=== PATIENT | male | born 1960 | race Hispanic/Latino ===

== ENCOUNTER 2020-11-15 08:00 | Inpatient (IN) | payer BC ==
[2020-11-10 13:40] VITALS: BP 126/81
[~2020-11-15] VITALS: Ht 175.3 cm; Wt 105.7 kg
[2020-11-15] VITALS (8 sets, daily range): BP systolic 103–147; BP diastolic 44–94
[2020-11-15] MEDS: LACTATED RINGERS 1,000 ML IV SCH ×2 (06:00→16:00)
[~2020-11-15 08:00] MED LIST: ANCEF ONE; BACTROBAN OINTMENT TP ONE; BACTROBAN TP ONE; CELEBREX ONE; CELEBREX PO ONE; DECADRON IV ONE; DEXAMETHASONE 10 MG/ML VIAL ONE; DICL50TA4 PO; LACTATED RINGERS 1,000 ML IV SCH; LISI-410 PO; MELO15TA6 PO; NEURONTIN ONE; NEURONTIN PO ONE; NS 250ML 250 ML IV ONE; TRAM50TA PO; TYLENOL PO ONE; ULTRAM ONE; ULTRAM PO STA
[2020-11-15] MEDS ORDERED: KETAMINE HCL-Non-Preferred ONE (08:12)
[2020-11-15] MEDS ORDERED: SUBLIMAZE ONE ×2 (08:13→13:03)
[2020-11-15] MEDS ORDERED: MARCAINE SPINAL AMPUL IJ ONE (08:14)
[2020-11-15] MEDS ORDERED: EPHEDRINE SULFATE ONE (08:15)
[2020-11-15] MEDS ORDERED: VERSED ONE (08:16)
[2020-11-15] MEDS ORDERED: ZOFRAN ONE (08:19)
[2020-11-15] MEDS ORDERED: DIPRIVAN IV ONE (08:19)
[2020-11-15] MEDS ORDERED: ULTRAM PO PRN ×2 (09:00)
[2020-11-15] MEDS ORDERED: LACTATED RINGERS 1,000 ML IV SCH (09:00)
[2020-11-15] MEDS ORDERED: CELEBREX PO SCH (09:00)
--- NOTE | 2020-11-15 10:07 | PCM.HP ---
History of Present Illness Reason for Visit: (1) Osteoarthritis of right hip ICD Code: M16.11 - Unilateral primary osteoarthritis, right hip SNOMED: [id number] Was this Problem Present on Ad: Yes-DX present @time ofIP Hx of Present Illness patient complains of worsening right hip pain for the past 6 months. Causing his knee to hurt. Complains of pain posteriorly and laterally. Trouble sleeping at night due to hip pain. Patient takes mobic for pain. Doesn't use any assistive devices. Lives at home with . Review of Systems Constitutional: No: Fever, Chills, Sweats, Weakness, Malaise, Other Eyes: No: Pain, Vision change, Conjunctivae inflammation, Eyelid inflammation, Other, Redness ENT: No: Ear pain, Ear discharge, Nose pain, Nose discharge, Nose congestion, Mouth pain, Mouth swelling, Throat pain, Throat swelling, Other Respiratory: No: Cough, Dry, Shortness of breath, SOB with excertion, Wheezing, Hemoptysis, Pleuritic Pain, Sputum, Wheezing, Other Cardiovascular: No: Chest Pain, Palpitations, Orthopnea, Paroxysmal Noc. Dyspnea, Edema, Lt Headedness, Other Gastrointestinal: No: Nausea, Vomiting, Abdominal Pain, Diarrhea, Constipation, Melena, Hematochezia, Other Genitourinary: No Dysuria, No Frequency, No Incontinence, No Hematuria, No Retention, No Other Musculoskeletal: other Skin: No: Rash, Lesions, Jaundice, Bruising, Other Neurological: No: Weakness, Numbness, Incoordination, Change in speech, Confusion, Seizures, Other Allergies: Coded Allergies: No Known Allergies (Unverified , 11/10/20) Scheduled Diclofenac Sodium (Diclofenac Sodium), 1 TAB PO BID, (Reported) Lisinopril (Lisinopril), 1 TAB PO DAILY, (Reported) Meloxicam (Mobic), 1 TAB PO DAILY, (Reported) Scheduled PRN Tramadol Hcl (Tramadol Hcl), 1 TAB PO BID PRN for PAIN 4 - 6, (Reported) VTE VTE Risk Total Score: >5 VTE Risk Score VTE Risk: Score 0-1 = Low Risk (Aggressive mobilization; early ambulation; no VTE prophylaxis required) Score 2: Moderate Risk (Intermittent/Pneumatic Compression Device OR Lovenox/Heparin/Coumadin) Score 3-4: High Risk (Intermittent/Pneumatic Compression Device AND Lovenox/Heparin/Coumadin) Score > or =5: Highest Risk (Intermittent/Pneumatic Compression Device AND Lovenox/Heparin/Coumadin) VTE VTE Present on Admission: No Currently receiving anticoagul: No VTE Risk Total Score: >5 Exam General Appearance: Alert, Oriented X3, Cooperative, No acute distress HEENT: Atraumatic, PERRLA, EOMI, Mucous membr. moist/pink Respiratory: Clear to auscultation, Normal air movement Cardiovascular: Regular rate Abdominal: Normal bowel sounds, Soft, No tenderness Extremities: No clubbing, No cyanosis, No edema, Normal pulses, Other (right hip pain, 90 degrees flexion, no internal rotation, 30 degrees external) Skin: No rash, No breakdown Neuro: Normal gait, Normal speech, Strength at 5/5 X4 ext Psych/Mental Status: Mental status NL, Mood NL Assessment/Plan Assessment/Plan Problems: (1) Osteoarthritis of right hip ICD Code: M16.11 - Unilateral primary osteoarthritis, right hip SNOMED: [id number] Patient History: No known health problems G8 MOTHER G8 FATHER G8 BROTHER G8 BROTHER G8 SISTER G8 SISTER Plan Right hip OA- surgery planned for today 11/15/20. WBAT RLE monitor dressing PT/OT eval and treat. WBAT RLE, walker, safety training FRANCISCA EDWARD NP Nov 15, 2020 10:07
[2020-11-15] MEDS ORDERED: NS 250ML 250 ML IV ONE (11:00)
[2020-11-15] MEDS ORDERED: NS 3000ML IRR IR ONE (11:00)
[2020-11-15] MEDS ORDERED: WATER ONE (12:43)
[2020-11-15] MEDS ORDERED: TORADOL ONE (13:03)
[2020-11-15] MEDS ORDERED: TORADOL IV PRN (15:00)
--- NOTE | 2020-11-15 15:11 | DIREP ---
PROCEDURE:XRAY HIP MIN 2VW-RT COMPARISON:None. INDICATIONS:post op FINDINGS: BONES:No acute fracture. JOINTS:Right hip arthroplasty appears intact and appropriately aligned. SOFT TISSUES:Soft tissue edema and emphysema about the right hip would be consistent with recent postoperative state, as indicated by overlying skin sigrid. CONCLUSION: 1. Postoperative changes of recent right hip arthroplasty. No suspicious abnormality. Dictated by: David Mendoza M.D. On 11/15/2020 at 03:08 PM
--- NOTE | 2020-11-15 15:55 | OPH ---
DATE OF SURGERY: 11/15/2020 PREOPERATIVE DIAGNOSIS: Osteoarthritis of the right hip. POSTOPERATIVE DIAGNOSIS: Osteoarthritis of the right hip. OPERATIVE PROCEDURE: Right total hip arthroplasty using Medacta AMIS size 3 femoral component, a size 58 Versafit cup with a 28 mm neutral ceramic head and a 58 dual-articulating liner. SURGEON: Baljit Camara MD ANESTHESIA: Spinal. BLOOD LOSS: 600 mL. DRAINS: None. DESCRIPTION OF INDICATIONS: The patient is a 60-year-old male who has had severe pain about the right hip for the last 6 months. He complains of pain with just household ambulation as well as night pain. He has tried diclofenac as well as meloxicam and Tylenol in the past. He complains of limping and difficulty with working. His x-rays show that he is circumferentially [id number] about the right hip with large osteophytes about the acetabulum and subchondral cyst. The patient was taken to the operating room today for right total hip arthroplasty for pain relief. DESCRIPTION OF PROCEDURE: The patient was given a spinal anesthetic and placed on the operating table in the supine position. The right foot and ankle were well padded and placed in the traction boot. Traction boot was then attached to the leg mendes extension. The patient had the right lower extremity sterilely prepped and draped. The patient then had an anterior incision made about the hip. The incision was taken through the skin and the subcutaneous tissues. The bleeding was controlled with cautery. The tensor fascia was opened and the tensor muscle was reflected posteriorly. The patient then had the rectus fascia opened and the rectus muscle was reflected medially. The circumflex vessels were then identified and coagulated with the Aquamantys device. The fat pad over the capsule was excised and the capsular incision was then made and the capsule was retracted posteriorly and laterally. The femoral neck cut was then made with the power saw. The head was removed from the acetabulum with a corkscrew device. The osteophytes around the peripheral edge of the acetabulum were then cleared with a rongeur and an osteotome. The patient had the fovea cleared and the bleeding controlled. The hip was then circumferentially reamed up to a size 58. The size 58 Versafit trial was placed and had good fit. The 58 Versafit cup was then impacted into the acetabulum and clinically and radiographically, the sizing of the component was good. The patient then had the posterior ligaments released. The hip was then placed in maximal external rotation and hyperextension. The canal was opened with a box chisel. Canal was then opened initially with a canal finder and then it was sequentially rasped up to a size 3. The size 3 trial had a good fit clinically as well as radiographically. We ended up using a neutral neck length and a 28 mm head. There was good stability clinically. Radiographically, the sizing of the components and the alignment was satisfactory. Trial components were then removed. A size 3 AMIS stem was then impacted into position. The 28 mm neutral neck length on the head was placed into the dual-articulating cup, which was a 58, and then it was impacted onto the Castellon taper neck. The hip was reduced. Again, clinically there was good stability and radiographically, the leg lengths appeared appropriate and the size of the components appeared appropriate. The joint was then irrigated with Betadine-containing solution for 3 minutes. The Betadine was then irrigated from the wound. The capsule was closed with a #2 PDS in an interrupted manner. The tensor fascia was closed with a #2 barbed PDS in a running manner and the subcutaneous was closed with a 2-0 barbed Monocryl in a running manner. The skin was closed with sigrid. A Prevena suction type dressing was applied. The patient was sent to recovery in stable condition. Baljit Camara MD DR: HATTIE/gonzález JOB# [id number]
[2020-11-15] MEDS: PEPCID PO SCH (16:39)
[2020-11-15] MEDS: COLACE PO SCH (16:39)
[2020-11-15] MEDS ORDERED: TYLENOL PO ONE (16:49)
[2020-11-15] MEDS: TYLENOL PO SCH (16:52)
[2020-11-15] MEDS: NEURONTIN PO SCH ×2 (16:53→21:23)
[2020-11-15] MEDS: ULTRAM PO SCH ×2 (16:54→21:23)
--- NOTE | 2020-11-15 17:41 | PRM.PN ---
Subjective Subjective Date: Nov 15, 2020 Time: 17:40 Subjective Awake and alert VSS NVM+ No N/V Pain ok Stable Patient History: No known health problems G8 MOTHER G8 FATHER G8 BROTHER G8 BROTHER G8 SISTER G8 SISTER VTE VTE Risk Total Score: >5 VTE Risk Score VTE Risk: Score 0-1 = Low Risk (Aggressive mobilization; early ambulation; no VTE prophylaxis required) Score 2: Moderate Risk (Intermittent/Pneumatic Compression Device OR Lovenox/Heparin/Coumadin) Score 3-4: High Risk (Intermittent/Pneumatic Compression Device AND Lovenox/Heparin/Coumadin) Score > or =5: Highest Risk (Intermittent/Pneumatic Compression Device AND Lovenox/Heparin/Coumadin) Review of Systems Constitutional: No: Fever, Chills, Sweats, Weakness, Malaise, Other Eyes: No: Pain, Vision change, Conjunctivae inflammation, Eyelid inflammation, Other, Redness ENT: No: Ear pain, Ear discharge, Nose pain, Nose discharge, Nose congestion, Mouth pain, Mouth swelling, Throat pain, Throat swelling, Other Respiratory: No: Cough, Dry, Shortness of breath, SOB with excertion, Wheezing, Hemoptysis, Pleuritic Pain, Sputum, Wheezing, Other Cardiovascular: No: Chest Pain, Palpitations, Orthopnea, Paroxysmal Noc. Dyspnea, Edema, Lt Headedness, Other Gastrointestinal: No: Nausea, Vomiting, Abdominal Pain, Diarrhea, Constipation, Melena, Hematochezia, Other Genitourinary: No Dysuria, No Frequency, No Incontinence, No Hematuria, No Retention, No Other Musculoskeletal: other Skin: No: Rash, Lesions, Jaundice, Bruising, Other Neurological: No: Weakness, Numbness, Incoordination, Change in speech, Confusion, Seizures, Other Allergies: Coded Allergies: No Known Allergies (Unverified , 11/10/20) Scheduled Diclofenac Sodium (Diclofenac Sodium), 1 TAB PO BID, (Reported) Lisinopril (Lisinopril), 1 TAB PO DAILY, (Reported) Meloxicam (Mobic), 1 TAB PO DAILY, (Reported) Scheduled PRN Tramadol Hcl (Tramadol Hcl), 1 TAB PO BID PRN for PAIN 4 - 6, (Reported) Objective Vitals and I/O Vital Sign - Last 24 Hours 1/25/21 11/15/20 11/15/20 11/15/20 06:00 06:00 14:31 14:31 Temp 96.9 98.7 Pulse 75 94 Resp 18 18 B/P (MAP) 140/78 (98) 122/44 (70) Pulse Ox 96 97 O2 Delivery Room Air Room Air Non-Rebreather O2 Flow Rate 5 5 11/15/20 11/15/20 11/15/20 11/15/20 14:41 14:51 15:01 15:11 Pulse 90 95 90 88 Resp 18 18 16 18 B/P (MAP) 130/57 (81) 141/94 (110) 146/88 (107) 147/88 (107) Pulse Ox 97 98 100 100 O2 Delivery Room Air Room Air Room Air Room Air 11/15/20 11/15/20 15:21 16:10 Pulse 91 Resp 18 B/P (MAP) 141/75 (97) Pulse Ox 99 O2 Delivery Room Air Room Air O2 Flow Rate 0.00 General: Alert, Oriented X3, Cooperative, No acute distress HEENT: Atraumatic, PERRLA, EOMI, Mucous membr. moist/pink Lungs: Clear to auscultation, Normal air movement Heart: Regular rate Abdomen: Normal bowel sounds, Soft, No tenderness Extremities: No clubbing, No cyanosis, No edema, Normal pulses, Other (right hip pain, 90 degrees flexion, no internal rotation, 30 degrees external) Neuro: Normal gait, Normal speech, Strength at 5/5 X4 ext Psych/Mental Status: Mental status NL, Mood NL All Results(Lab/Rad) Current Medications Medications (Trade) Dose Ordered Sig/Lopez Route PRN Reason Start Time Stop Time Status Last Admin Dose Admin Mupirocin (Bactroban) 1 gm OT ONCE TP 11/15/20 06:00 11/15/20 16:37 DC Sodium Chloride 250 ml @ ud STK-MED ONCE IV 11/13/20 17:25 11/13/20 17:26 DC Cefazolin Sodium (Ancef) 1 gm STK-MED ONCE .ROUTE 11/13/20 17:25 11/13/20 17:26 DC Mupirocin (Bactroban Ointment) 1 gm STK-MED ONCE TP 11/13/20 17:25 11/13/20 17:26 DC Mupirocin (Bactroban Ointment) 1 gm OT ONCE TP 11/15/20 07:00 11/15/20 16:36 DC 11/15/20 06:38 Celecoxib (Celebrex) 100 mg STK-MED ONCE .ROUTE 11/15/20 07:39 11/15/20 07:39 DC Acetaminophen (Tylenol) 500 mg STK-MED ONCE PO 11/15/20 07:39 11/15/20 07:39 DC Gabapentin (Neurontin) 300 mg STK-MED ONCE .ROUTE 11/15/20 07:39 11/15/20 07:39 DC Tramadol HCl (Ultram) 50 mg STK-MED ONCE .ROUTE 11/15/20 07:39 11/15/20 07:40 DC Celecoxib (Celebrex) 400 mg OT ONCE PO 11/15/20 06:00 11/15/20 16:38 DC 11/15/20 07:44 Tramadol HCl (Ultram) 100 mg OT STAT PO 11/15/20 06:00 11/15/20 16:41 DC 11/15/20 07:45 Acetaminophen (Tylenol) 1,000 mg OT ONCE PO 11/15/20 08:00 11/15/20 16:42 DC 11/15/20 07:45 Gabapentin (Neurontin) 600 mg OT ONCE PO 11/15/20 06:00 11/15/20 16:40 DC 11/15/20 07:44 Ketamine HCl (KETAMINE [id number]) 500 mg STK-MED ONCE .ROUTE 11/15/20 08:12 11/15/20 08:12 DC Fentanyl Citrate (Sublimaze) 50 mcg STK-MED ONCE .ROUTE 11/15/20 08:13 11/15/20 08:13 DC Bupivacaine HCl/ Dextrose (Marcaine Spinal Ampul) 2 ml STK-MED ONCE IJ 11/15/20 08:14 11/15/20 08:14 DC Ephedrine Sulfate (Ephedrine Sulfate) 50 mg STK-MED ONCE .ROUTE 11/15/20 08:15 11/15/20 08:15 DC Propofol (Diprivan) 200 mg STK-MED ONCE IV 11/15/20 08:19 11/15/20 08:19 DC Ondansetron HCl (Zofran) 4 mg STK-MED ONCE .ROUTE 11/15/20 08:19 11/15/20 08:20 DC Tramadol HCl (Ultram) 50 mg Q6H PRN PO PAIN 4 - 6 11/15/20 09:00 11/15/20 14:44 DC Tramadol HCl (Ultram) 100 mg Q6H PRN PO PAIN 7 - 10 11/15/20 09:00 12/15/20 08:59 Rivaroxaban (Xarelto) 10 mg DAILY PO 11/16/20 09:00 12/16/20 08:59 Docusate Sodium (Colace) 100 mg DAILY PO 11/15/20 09:00 12/15/20 08:59 Famotidine (Pepcid) 20 mg DAILY PO 11/15/20 09:00 12/15/20 08:59 Celecoxib (Celebrex) 200 mg BID PO 11/15/20 09:00 11/15/20 14:44 DC Diclofenac Sodium (Voltaren) 50 mg BID PO 11/15/20 21:00 11/15/20 14:44 DC Lisinopril (Zestril) 20 mg DAILY PO 11/16/20 09:00 12/16/20 08:59 Sodium Chloride 250 ml @ ud STK-MED ONCE IV 11/15/20 11:00 11/15/20 11:00 DC Sodium Chloride (NS 3000ml Irr) 3,000 ml STK-MED ONCE IR 11/15/20 11:00 11/15/20 11:00 DC Sterile Water (Water) 1,000 ml STK-MED ONCE .ROUTE 11/15/20 12:43 11/15/20 12:44 DC Fentanyl Citrate (Sublimaze) 50 mcg STK-MED ONCE .ROUTE 11/15/20 13:03 11/15/20 13:03 DC Ketorolac Tromethamine (Toradol) 30 mg STK-MED ONCE .ROUTE 11/15/20 13:03 11/15/20 13:04 DC Tramadol HCl (Ultram) 50 mg Q4HR PO 11/15/20 15:00 12/15/20 08:59 11/15/20 16:54 Acetaminophen (Tylenol) 1,000 mg Q6HR PO 11/15/20 18:00 12/15/20 17:59 11/15/20 16:52 Gabapentin (Neurontin) 100 mg TID PO 11/15/20 15:00 12/15/20 14:59 11/15/20 16:53 Ketorolac Tromethamine (Toradol) 30 mg Q6H PRN IV PAIN 7 - 10 11/15/20 15:00 11/20/20 14:59 Gabapentin (Neurontin) 600 mg OT ONCE PO 11/15/20 06:00 11/15/20 16:40 DC Acetaminophen (Tylenol) 500 mg STK-MED ONCE PO 11/15/20 16:49 11/15/20 16:50 DC Course Vitals & review Data Vital Sign - Last 24 Hours 11/15/20 11/15/20 11/15/20 11/15/20 06:00 06:00 14:31 14:31 Temp 96.9 98.7 Pulse 75 94 Resp 18 18 B/P (MAP) 140/78 (98) 122/44 (70) Pulse Ox 96 97 O2 Delivery Room Air Room Air Non-Rebreather O2 Flow Rate 5 5 11/15/20 11/15/20 11/15/20 11/15/20 14:41 14:51 15:01 15:11 Pulse 90 95 90 88 Resp 18 18 16 18 B/P (MAP) 130/57 (81) 141/94 (110) 146/88 (107) 147/88 (107) Pulse Ox 97 98 100 100 O2 Delivery Room Air Room Air Room Air Room Air 11/15/20 11/15/20 15:21 16:10 Pulse 91 Resp 18 B/P (MAP) 141/75 (97) Pulse Ox 99 O2 Delivery Room Air Room Air O2 Flow Rate 0.00 Current Medications Medications (Trade) Dose Ordered Sig/Lopez PRN Reason Start Time Stop Time Status Last Admin Acetaminophen (Tylenol) 1,000 mg Q6HR 11/15/20 18:00 12/15/20 17:59 11/15/20 16:52 Docusate Sodium (Colace) 100 mg DAILY 11/15/20 09:00 12/15/20 08:59 Famotidine (Pepcid) 20 mg DAILY 11/15/20 09:00 12/15/20 08:59 Gabapentin (Neurontin) 100 mg TID 11/15/20 15:00 12/15/20 14:59 11/15/20 16:53 Ketorolac Tromethamine (Toradol) 30 mg Q6H PRN PAIN 7 - 10 11/15/20 15:00 11/20/20 14:59 Lisinopril (Zestril) 20 mg DAILY 11/16/20 09:00 12/16/20 08:59 Rivaroxaban (Xarelto) 10 mg DAILY 11/16/20 09:00 12/16/20 08:59 Tramadol HCl (Ultram) 50 mg Q4HR 11/15/20 15:00 12/15/20 08:59 11/15/20 16:54 Tramadol HCl (Ultram) 100 mg Q6H PRN PAIN 7 - 10 11/15/20 09:00 12/15/20 08:59 O2 Sat by Pulse Oximetry: 99 Oxygen Flow Rate: 0.00 Assessment/Plan Assessment/Plan Assessment/Plan Right hip OA- surgery planned for today 11/15/20. WBAT RLE monitor dressing PT/OT eval and treat. WBAT stan VERDE, safety training Plan Right hip OA- surgery planned for today 11/15/20. WBAT RLE monitor dressing PT/OT eval and treat. WBAT stan VERDE, safety training KAYLENE NEAL MD Nov 15, 2020 17:41
--- NOTE | 2020-11-15 18:46 | NUR ---
1550 Received 60 year old male admitted to room 338, s/p right hip surgery. Prevea in place. Pashto speaking. Alert Ox3. No acute or resp distress noted. Skin warm and dry. LBM 11/14/2020. Pedal pulses x 2 present. Negative homans Peoples catheter in place. Oriented to call light system.
[2020-11-15] MEDS ORDERED: VOLTAREN PO SCH (21:00)
[2020-11-16] MEDS: TYLENOL PO SCH ×4 (00:22→17:35)
[2020-11-16] MEDS: ULTRAM PO SCH ×7 (00:23→20:10)
[2020-11-16 00:46] VITALS: BP 99/54
[2020-11-16] MEDS: LACTATED RINGERS 1,000 ML IV SCH ×3 (01:47→22:00)
[2020-11-16 04:47] VITALS: BP 100/53
[2020-11-16 05:30] LABS: MEAN CORP HGB 30.5 pg (26-34); RED CELL DISTRIBUTION WIDTH 12.9 % (11.5-14.5)
[2020-11-16 07:58] VITALS: BP 99/53
[2020-11-16] MEDS: NEURONTIN PO SCH ×3 (08:40→20:10)
[2020-11-16] MEDS: COLACE PO SCH (08:40)
[2020-11-16] MEDS: XARELTO PO SCH (08:41)
[2020-11-16] MEDS: ZESTRIL PO SCH (08:41)
[2020-11-16] MEDS: PEPCID PO SCH (08:41)
--- NOTE | 2020-11-16 09:08 | NUR ---
Post Anesthesia Rounding: Pt sitting up in bed, pt denies pain or PONV. Bilateral lower extremity motor function intact, pt denies back pain or headache. Pt encouraged to use incentive spirometry to maximize lung expansion / basilar. Pt verbalizes understanding Thank you, Dr. Dio Way, DNP, [employer]
[2020-11-16] MEDS: ANCEF 3 GM in NS 100ML 100 ML IV SCH ×2 (09:12→15:41)
--- NOTE | 2020-11-16 09:14 | PRM.PN ---
Subjective Subjective Date: Nov 16, 2020 Time: 09:07 Subjective patient laying in bed, pain controlled had content strategy lead for patient VS /, patient denies dizziness or nausea. Appetite good. labs reviewed; . right hip dressing C/D/I PT in room to work on ambulation and transfers for the first time since surgery Patient History: No known health problems G8 MOTHER G8 FATHER G8 BROTHER G8 BROTHER G8 SISTER G8 SISTER VTE VTE Risk Total Score: >5 VTE Risk Score VTE Risk: Score 0-1 = Low Risk (Aggressive mobilization; early ambulation; no VTE prophylaxis required) Score 2: Moderate Risk (Intermittent/Pneumatic Compression Device OR Lovenox/Heparin/Coumadin) Score 3-4: High Risk (Intermittent/Pneumatic Compression Device AND Lovenox/Heparin/Coumadin) Score > or =5: Highest Risk (Intermittent/Pneumatic Compression Device AND Lovenox/Heparin/Coumadin) Review of Systems Constitutional: No: Fever, Chills, Sweats, Weakness, Malaise, Other Eyes: No: Pain, Vision change, Conjunctivae inflammation, Eyelid inflammation, Other, Redness ENT: No: Ear pain, Ear discharge, Nose pain, Nose discharge, Nose congestion, Mouth pain, Mouth swelling, Throat pain, Throat swelling, Other Respiratory: No: Cough, Dry, Shortness of breath, SOB with excertion, Wheezing, Hemoptysis, Pleuritic Pain, Sputum, Wheezing, Other Cardiovascular: No: Chest Pain, Palpitations, Orthopnea, Paroxysmal Noc. Dyspnea, Edema, Lt Headedness, Other Gastrointestinal: No: Nausea, Vomiting, Abdominal Pain, Diarrhea, Constipation, Melena, Hematochezia, Other Genitourinary: No Dysuria, No Frequency, No Incontinence, No Hematuria, No Retention, No Other Musculoskeletal: other (right hip) Skin: No: Rash, Lesions, Jaundice, Bruising, Other Neurological: No: Weakness, Numbness, Incoordination, Change in speech, Confusion, Seizures, Other Allergies: Coded Allergies: No Known Allergies (Unverified , 11/10/20) Scheduled Diclofenac Sodium (Diclofenac Sodium), 1 TAB PO BID, (Reported) Lisinopril (Lisinopril), 1 TAB PO DAILY, (Reported) Meloxicam (Mobic), 1 TAB PO DAILY, (Reported) Scheduled PRN Tramadol Hcl (Tramadol Hcl), 1 TAB PO BID PRN for PAIN 4 - 6, (Reported) Objective Vitals and I/O Vital Sign - Last 24 Hours 11/15/20 11/15/20 11/15/20 11/15/20 14:31 14:31 14:41 14:51 Temp 98.7 Pulse 94 90 95 Resp 18 18 18 B/P (MAP) 122/44 (70) 130/57 (81) 141/94 (110) Pulse Ox 97 97 98 O2 Delivery Non-Rebreather Room Air Room Air O2 Flow Rate 5 5 11/15/20 11/15/20 11/15/20 11/15/20 15:01 15:11 15:21 16:10 Pulse 90 88 91 Resp 16 18 18 B/P (MAP) 146/88 (107) 147/88 (107) 141/75 (97) Pulse Ox 100 100 99 O2 Delivery Room Air Room Air Room Air Room Air O2 Flow Rate 0.00 11/15/20 11/15/20 11/16/20 11/16/20 19:46 23:38 00:46 04:47 Temp 98.2 98.1 97.9 Pulse 87 81 77 Resp 18 18 18 B/P (MAP) 103/63 (76) 99/54 (69) 100/53 (69) Pulse Ox 98 98 100 O2 Delivery Room Air Room Air Room Air Room Air 11/16/20 11/16/20 07:58 08:41 Temp 98.5 Pulse 73 B/P (MAP) 99/53 (68) 99/53 Pulse Ox 100 Intake and Output 11/16/20 07:00 Intake Total 8090 ml Output Total 1400 ml Balance 6690 ml General: Alert, Oriented X3, Cooperative, No acute distress HEENT: Atraumatic, PERRLA, EOMI, Mucous membr. moist/pink Lungs: Clear to auscultation, Normal air movement Heart: Regular rate Abdomen: Normal bowel sounds, Soft, No tenderness Extremities: No clubbing, No cyanosis, No edema, Normal pulses, Other (right hip prevenia dressing intact, dressing clean and dry. Neuros intact.) Neuro: Normal gait, Normal speech, Strength at 5/5 X4 ext Psych/Mental Status: Mental status NL, Mood NL All Results(Lab/Rad) Current Medications Medications (Trade) Dose Ordered Sig/Lopez Route PRN Reason Start Time Stop Time Status Last Admin Dose Admin Mupirocin (Bactroban) 1 gm OT ONCE TP 11/15/20 06:00 11/15/20 16:37 DC Sodium Chloride 250 ml @ ud STK-MED ONCE IV 11/13/20 17:25 11/13/20 17:26 DC Cefazolin Sodium (Ancef) 1 gm STK-MED ONCE .ROUTE 11/13/20 17:25 11/13/20 17:26 DC Mupirocin (Bactroban Ointment) 1 gm STK-MED ONCE TP 11/13/20 17:25 11/13/20 17:26 DC Mupirocin (Bactroban Ointment) 1 gm OT ONCE TP 11/15/20 07:00 11/15/20 16:36 DC 11/15/20 06:38 Celecoxib (Celebrex) 100 mg STK-MED ONCE .ROUTE 11/15/20 07:39 11/15/20 07:39 DC Acetaminophen (Tylenol) 500 mg STK-MED ONCE PO 11/15/20 07:39 11/15/20 07:39 DC Gabapentin (Neurontin) 300 mg STK-MED ONCE .ROUTE 11/15/20 07:39 11/15/20 07:39 DC Tramadol HCl (Ultram) 50 mg STK-MED ONCE .ROUTE 11/15/20 07:39 11/15/20 07:40 DC Celecoxib (Celebrex) 400 mg OT ONCE PO 11/15/20 06:00 11/15/20 16:38 DC 11/15/20 07:44 Tramadol HCl (Ultram) 100 mg OT STAT PO 11/15/20 06:00 11/15/20 16:41 DC 11/15/20 07:45 Acetaminophen (Tylenol) 1,000 mg OT ONCE PO 11/15/20 08:00 11/15/20 16:42 DC 11/15/20 07:45 Gabapentin (Neurontin) 600 mg OT ONCE PO 11/15/20 06:00 11/15/20 16:40 DC 11/15/20 07:44 Ketamine HCl (KETAMINE [id number]-[id number]) 500 mg STK-MED ONCE .ROUTE 11/15/20 08:12 11/15/20 08:12 DC Fentanyl Citrate (Sublimaze) 50 mcg STK-MED ONCE .ROUTE 11/15/20 08:13 11/15/20 08:13 DC Bupivacaine HCl/ Dextrose (Marcaine Spinal Ampul) 2 ml STK-MED ONCE IJ 11/15/20 08:14 11/15/20 08:14 DC Ephedrine Sulfate (Ephedrine Sulfate) 50 mg STK-MED ONCE .ROUTE 11/15/20 08:15 11/15/20 08:15 DC Propofol (Diprivan) 200 mg STK-MED ONCE IV 11/15/20 08:19 11/15/20 08:19 DC Ondansetron HCl (Zofran) 4 mg STK-MED ONCE .ROUTE 11/15/20 08:19 11/15/20 08:20 DC Tramadol HCl (Ultram) 50 mg Q6H PRN PO PAIN 4 - 6 11/15/20 09:00 11/15/20 14:44 DC Tramadol HCl (Ultram) 100 mg Q6H PRN PO PAIN 7 - 10 11/15/20 09:00 12/15/20 08:59 Rivaroxaban (Xarelto) 10 mg DAILY PO 11/16/20 09:00 12/16/20 08:59 Docusate Sodium (Colace) 100 mg DAILY PO 11/15/20 09:00 12/15/20 08:59 Famotidine (Pepcid) 20 mg DAILY PO 11/15/20 09:00 12/15/20 08:59 Celecoxib (Celebrex) 200 mg BID PO 11/15/20 09:00 11/15/20 14:44 DC Diclofenac Sodium (Voltaren) 50 mg BID PO 11/15/20 21:00 11/15/20 14:44 DC Lisinopril (Zestril) 20 mg DAILY PO 11/16/20 09:00 12/16/20 08:59 Sodium Chloride 250 ml @ ud STK-MED ONCE IV 11/15/20 11:00 11/15/20 11:00 DC Sodium Chloride (NS 3000ml Irr) 3,000 ml STK-MED ONCE IR 11/15/20 11:00 11/15/20 11:00 DC Sterile Water (Water) 1,000 ml STK-MED ONCE .ROUTE 11/15/20 12:43 11/15/20 12:44 DC Fentanyl Citrate (Sublimaze) 50 mcg STK-MED ONCE .ROUTE 11/15/20 13:03 11/15/20 13:03 DC Ketorolac Tromethamine (Toradol) 30 mg STK-MED ONCE .ROUTE 11/15/20 13:03 11/15/20 13:04 DC Tramadol HCl (Ultram) 50 mg Q4HR PO 11/15/20 15:00 12/15/20 08:59 11/15/20 16:54 Acetaminophen (Tylenol) 1,000 mg Q6HR PO 11/15/20 18:00 12/15/20 17:59 11/15/20 16:52 Gabapentin (Neurontin) 100 mg TID PO 11/15/20 15:00 12/15/20 14:59 11/15/20 16:53 Ketorolac Tromethamine (Toradol) 30 mg Q6H PRN IV PAIN 7 - 10 11/15/20 15:00 11/20/20 14:59 Gabapentin (Neurontin) 600 mg OT ONCE PO 11/15/20 06:00 11/15/20 16:40 DC Acetaminophen (Tylenol) 500 mg STK-MED ONCE PO 11/15/20 16:49 11/15/20 16:50 DC Course Sepsis Screening Results: Posi: NEGATIVE Sepsis Qualifier/Stage: NO DEFINITE RISK Vitals & review Data Vital Sign - Last 24 Hours 11/15/20 11/15/20 11/15/20 11/15/20 06:00 06:00 14:31 14:31 Temp 96.9 98.7 Pulse 75 94 Resp 18 18 B/P (MAP) 140/78 (98) 122/44 (70) Pulse Ox 96 97 O2 Delivery Room Air Room Air Non-Rebreather O2 Flow Rate 5 5 11/15/20 11/15/20 11/15/20 11/15/20 14:41 14:51 15:01 15:11 Pulse 90 95 90 88 Resp 18 18 16 18 B/P (MAP) 130/57 (81) 141/94 (110) 146/88 (107) 147/88 (107) Pulse Ox 97 98 100 100 O2 Delivery Room Air Room Air Room Air Room Air 11/15/20 11/15/20 15:21 16:10 Pulse 91 Resp 18 B/P (MAP) 141/75 (97) Pulse Ox 99 O2 Delivery Room Air Room Air O2 Flow Rate 0.00 Current Medications Medications (Trade) Dose Ordered Sig/Lopez PRN Reason Start Time Stop Time Status Last Admin Acetaminophen (Tylenol) 1,000 mg Q6HR 11/15/20 18:00 12/15/20 17:59 11/15/20 16:52 Docusate Sodium (Colace) 100 mg DAILY 11/15/20 09:00 12/15/20 08:59 Famotidine (Pepcid) 20 mg DAILY 11/15/20 09:00 12/15/20 08:59 Gabapentin (Neurontin) 100 mg TID 11/15/20 15:00 12/15/20 14:59 11/15/20 16:53 Ketorolac Tromethamine (Toradol) 30 mg Q6H PRN PAIN 7 - 10 11/15/20 15:00 11/20/20 14:59 Lisinopril (Zestril) 20 mg DAILY 11/16/20 09:00 12/16/20 08:59 Rivaroxaban (Xarelto) 10 mg DAILY 11/16/20 09:00 12/16/20 08:59 Tramadol HCl (Ultram) 50 mg Q4HR 11/15/20 15:00 12/15/20 08:59 11/15/20 16:54 Tramadol HCl (Ultram) 100 mg Q6H PRN PAIN 7 - 10 11/15/20 09:00 12/15/20 08:59 LEVEL 1 SEPSIS INFECTION CRITE: Recent Invasive Procedure LEVEL 2-SIRS (LIST ALL THAT AP: None/Not assessed Hematologic Evidence: None/Not assessed Hepatic Evidence: None/Not assessed Neurological Evidence: None/Not assessed Renal Evidence: None/Not assessed O2 Sat by Pulse Oximetry: 100 Oxygen Flow Rate: 0.00 Assessment/Plan Assessment/Plan Problems: (1) Osteoarthritis of right hip Status: Acute ICD Code: M16.11 - Unilateral primary osteoarthritis, right hip SNOMED: 736579151342879 Plan Right hip OA- s/p Right CASS WBAT RLE monitor dressing PT/OT eval and treat. WBAT RLE, walker, safety training monitor BP, keep IVF running. Hold Lisinopril DVT prophylaxis- Xarelto started this morning. monitor CBC labs scheduled for morning remove newby catheter today FRANCISCA EDWARD NP Nov 16, 2020 09:14
[2020-11-16 12:28] VITALS: BP 108/58
[2020-11-16 17:33] VITALS: BP 95/52
[2020-11-16 19:46] VITALS: BP 106/52
[2020-11-17] MEDS: ULTRAM PO SCH ×4 (00:25→11:23)
[2020-11-17] MEDS: TYLENOL PO SCH ×3 (00:25→11:24)
[2020-11-17 00:26] VITALS: BP 105/59
[2020-11-17 04:53] VITALS: BP 114/67
[2020-11-17 05:16] LABS: MEAN CORP HGB 30.7 pg (26-34); RED CELL DISTRIBUTION WIDTH 13.2 % (11.5-14.5)
[2020-11-17 05:59] LABS: CALCIUM 8.6 mg/dL (8.4-10.5); CARBON DIOXIDE 28.2 mmol/L (20.0-32)
[2020-11-17] MEDS: COLACE PO SCH (08:16)
[2020-11-17 08:17] VITALS: BP 103/66
[2020-11-17] MEDS: ZESTRIL PO SCH (08:17)
[2020-11-17] MEDS: XARELTO PO SCH (08:17)
[2020-11-17] MEDS: PEPCID PO SCH (08:17)
[2020-11-17] MEDS: NEURONTIN PO SCH (08:17)
[2020-11-17] MEDS: LACTATED RINGERS 1,000 ML IV SCH (08:18)
--- NOTE | 2020-11-17 08:31 | PRM.DC ---
Discharge Summary Date of Discharge: Nov 17, 2020 Time of Request to Discharge: 08:26 Additional Comments patient sitting in bed, finished breakfast pain controlled right hip dressing intact ambulating well with PT VSS ready to discharge Patient History: No known health problems G8 MOTHER G8 FATHER G8 BROTHER G8 BROTHER G8 SISTER G8 SISTER General: Alert, Oriented X3, Cooperative, No acute distress HEENT: Atraumatic, PERRLA, EOMI, Mucous membr. moist/pink Neck: Supple, No JVD, No thyromegaly Lungs: Clear to auscultation, Normal air movement Heart: Regular rate Abdomen: Normal bowel sounds, Soft, No tenderness, No hepatospenomegaly Extremities: No clubbing, No cyanosis, No edema, Normal pulses, No tenderness/swelling Skin: No rashes, No breakdown, No significant lesion Neuro: Normal gait, Normal speech Psych/Mental Status: Mental status NL, Mood NL Scheduled Diclofenac Sodium (Diclofenac Sodium), 1 TAB PO BID, (Reported) Lisinopril (Lisinopril), 1 TAB PO DAILY, (Reported) Meloxicam (Mobic), 1 TAB PO DAILY, (Reported) Scheduled PRN Tramadol Hcl (Tramadol Hcl), 1 TAB PO BID PRN for PAIN 4 - 6, (Reported) Sepsis Evaluation @ Discharge Vital Sign - Last 24 Hours 11/15/20 11/15/20 11/15/20 11/15/20 06:00 06:00 14:31 14:31 Temp 96.9 98.7 Pulse 75 94 Resp 18 18 B/P (MAP) 140/78 (98) 122/44 (70) Pulse Ox 96 97 O2 Delivery Room Air Room Air Non-Rebreather O2 Flow Rate 5 5 11/15/20 11/15/20 11/15/20 11/15/20 14:41 14:51 15:01 15:11 Pulse 90 95 90 88 Resp 18 18 16 18 B/P (MAP) 130/57 (81) 141/94 (110) 146/88 (107) 147/88 (107) Pulse Ox 97 98 100 100 O2 Delivery Room Air Room Air Room Air Room Air 11/15/20 11/15/20 15:21 16:10 Pulse 91 Resp 18 B/P (MAP) 141/75 (97) Pulse Ox 99 O2 Delivery Room Air Room Air O2 Flow Rate 0.00 Current Medications Medications (Trade) Dose Ordered Sig/Lopez PRN Reason Start Time Stop Time Status Last Admin Acetaminophen (Tylenol) 1,000 mg Q6HR 11/15/20 18:00 12/15/20 17:59 11/15/20 16:52 Docusate Sodium (Colace) 100 mg DAILY 11/15/20 09:00 12/15/20 08:59 Famotidine (Pepcid) 20 mg DAILY 11/15/20 09:00 12/15/20 08:59 Gabapentin (Neurontin) 100 mg TID 11/15/20 15:00 12/15/20 14:59 11/15/20 16:53 Ketorolac Tromethamine (Toradol) 30 mg Q6H PRN PAIN 7 - 10 11/15/20 15:00 11/20/20 14:59 Lisinopril (Zestril) 20 mg DAILY 11/16/20 09:00 12/16/20 08:59 Rivaroxaban (Xarelto) 10 mg DAILY 11/16/20 09:00 12/16/20 08:59 Tramadol HCl (Ultram) 50 mg Q4HR 11/15/20 15:00 12/15/20 08:59 11/15/20 16:54 Tramadol HCl (Ultram) 100 mg Q6H PRN PAIN 7 - 10 11/15/20 09:00 12/15/20 08:59 Course Sepsis Screening Results: Posi: NEGATIVE Sepsis Qualifier/Stage: NO DEFINITE RISK Vitals & review Data Vital Sign - Last 24 Hours 11/15/20 11/15/20 11/15/20 11/15/20 06:00 06:00 14:31 14:31 Temp 96.9 98.7 Pulse 75 94 Resp 18 18 B/P (MAP) 140/78 (98) 122/44 (70) Pulse Ox 96 97 O2 Delivery Room Air Room Air Non-Rebreather O2 Flow Rate 5 5 11/15/20 11/15/20 11/15/20 11/15/20 14:41 14:51 15:01 15:11 Pulse 90 95 90 88 Resp 18 18 16 18 B/P (MAP) 130/57 (81) 141/94 (110) 146/88 (107) 147/88 (107) Pulse Ox 97 98 100 100 O2 Delivery Room Air Room Air Room Air Room Air 11/15/20 11/15/20 15:21 16:10 Pulse 91 Resp 18 B/P (MAP) 141/75 (97) Pulse Ox 99 O2 Delivery Room Air Room Air O2 Flow Rate 0.00 Current Medications Medications (Trade) Dose Ordered Sig/Lopez PRN Reason Start Time Stop Time Status Last Admin Acetaminophen (Tylenol) 1,000 mg Q6HR 11/15/20 18:00 12/15/20 17:59 11/15/20 16:52 Docusate Sodium (Colace) 100 mg DAILY 11/15/20 09:00 12/15/20 08:59 Famotidine (Pepcid) 20 mg DAILY 11/15/20 09:00 12/15/20 08:59 Gabapentin (Neurontin) 100 mg TID 11/15/20 15:00 12/15/20 14:59 11/15/20 16:53 Ketorolac Tromethamine (Toradol) 30 mg Q6H PRN PAIN 7 - 10 11/15/20 15:00 11/20/20 14:59 Lisinopril (Zestril) 20 mg DAILY 11/16/20 09:00 12/16/20 08:59 Rivaroxaban (Xarelto) 10 mg DAILY 11/16/20 09:00 12/16/20 08:59 Tramadol HCl (Ultram) 50 mg Q4HR 11/15/20 15:00 12/15/20 08:59 11/15/20 16:54 Tramadol HCl (Ultram) 100 mg Q6H PRN PAIN 7 - 10 11/15/20 09:00 12/15/20 08:59 LEVEL 1 SEPSIS INFECTION CRITE: Recent Invasive Procedure LEVEL 2-SIRS (LIST ALL THAT AP: None/Not assessed Cardiovascular Evidence: Not Assessed or None Hematologic Evidence: None/Not assessed Hepatic Evidence: None/Not assessed Metabolic Evidence: None/Not assessed Neurological Evidence: None/Not assessed Respiratory Evidence: None/Not assessed Renal Evidence: None/Not assessed O2 Sat by Pulse Oximetry: 97 Oxygen Flow Rate: 0.00 Plan Problems: (1) Osteoarthritis of right hip Status: Acute ICD Code: M16.11 - Unilateral primary osteoarthritis, right hip SNOMED: 796758664005406 Discharge Date: Nov 17, 2020 Discharge Disposition: Stable Plan Right hip OA- POD #2 of right total hip arthroplasty monitor dressing, keep intact. F/U at Dr Palomino office on Sunday11/22/20 continue exercises for home, WBAT RLE labs reviewed stable DVT prophylaxis- Xarelto 10 mg daily x 7 days FRANCISCA EDWARD NP Nov 17, 2020 08:31
[2020-11-17] MEDS ORDERED: RIVA10TA PO (08:39)
[2020-11-17] MEDS ORDERED: TRAM50TA PO (08:39)
[2020-11-17 12:06] VITALS: BP 102/51
[2020-11-17 13:47] VITALS: BP 102/51
== END 2020-11-17 13:00 | disposition home or self-care (01) | DRG 470 ==
LOC: MS 16:00
PROVIDERS: ADMIT Orthopaedic Surgery; ATTEND Orthopaedic Surgery
PROC: 3E0T3BZ Introduction of Anesthetic Agent into Peripheral Nerves and Plexi, Percutaneous Approach (ICD-10-PCS; 2020-11-15)
PROC: 3E0T33Z Introduction of Anti-inflammatory into Peripheral Nerves and Plexi, Percutaneous Approach (ICD-10-PCS; 2020-11-15)
PROC: 0SR903Z Replacement of Right Hip Joint with Ceramic Synthetic Substitute, Open Approach (ICD-10-PCS; principal; 2020-11-15 11:05)
DX: M16.11 Unilateral primary osteoarthritis, right hip (principal); Z79.899 Other long term (current) drug therapy
CPT/HCPCS: 36415; 73502; 76000; 80053; 85027; 87070; 97162; 97165; A4217; A6550; G0378; J0690; J1100; J1885; J2250; J2405; J3010; J3490; J7050; J7120; 97116-GP; C1776; J8499

== ENCOUNTER 2022-06-12 08:00 | Inpatient (IN) | payer BC ==
[2022-05-31 14:27] VITALS: BP 147/93
--- NOTE | 2022-05-31 14:37 | PCM.EKG ---
[facility] Test Date: 2022-05-31 Test Time: 14:35:07 Pat Name: RAMIN CANNON Department: Room: Gender: M Yoghurt Maker: LELIA : 1960 Requested By: KAYLENE NEAL Order Number: [id number] Reading MD: Measurements Intervals [place] Rate: 64 P: 71 ID: [id number] QRS: 57 QRSD: 92 T: 60 QT: 430 QTc: 443 Interpretive Statements Normal sinus rhythm No previous ECG available for comparison Please click the below link to view image of tracing.
[2022-05-31 14:55] LABS: BASOPHIL # 0.1 10^3/uL (0.0-0.1); BASOPHIL % 0.8 % (0.0-0.2); EOSINOPHIL # 0.1 10^3/uL (0.0-0.2); EOSINOPHIL % 2.3 % (0.0-5.0); LYMPHOCYTES # 1.58 10^3/uL1 (1.0-4.8); MEAN CORP HGB 30.1 pg (26-34); MONOCYTES # 0.7 10^3/uL (0.3-0.8); MONOCYTES % 10.7 % (5.0-12.0); NEUTROPHIL # 3.6 10^3/uL (1.8-7.7); RED CELL DISTRIBUTION WIDTH 12.8 % (11.5-14.5)
[2022-05-31 15:08] LABS: CARBON DIOXIDE 28.2 mmol/L (20.0-32)
[2022-06-12] VITALS (15 sets, daily range): BP systolic 116–142; BP diastolic 57–91
[~2022-06-12] VITALS: Ht 188 cm; Wt 108.1 kg
[2022-06-12] MEDS: LACTATED RINGERS 1,000 ML IV SCH ×2 (06:45→15:48)
[~2022-06-12 08:00] MED LIST changes: +ANCEF 2 GM in NS 100ML 100 ML IV ONE; -BACTROBAN TP ONE; +CLONIDINE 1,000 MCG/10 ML VIAL EP ONE; +DECADRON ONE; -DEXAMETHASONE 10 MG/ML VIAL ONE; +EXPAREL 266 MG/20 ML VIAL IJ ONE; -LACTATED RINGERS 1,000 ML IV SCH; -LISI-410 PO; +LISI20TA21 PO; +MARCAINE 0.5% ONE; +MONT-38 PO; +NS 100ML 100 ML IV ONE; -NS 250ML 250 ML IV ONE; +NS 250ML 250 ML ONE; +NS 3000ML IRR IR ONE; +RIVA10TA PO; +SENSORCAINE-MPF 0.25% VIAL ONE; +SODIUM CHLORIDE IRR BOTTLE IR ONE; +TRANSDERM-SCOP TD ONE; +ULTRAM PO ONE; -ULTRAM PO STA; +VERSED ONE; +WATER ONE
[2022-06-12] MEDS ORDERED: TRANEXAMIC ACID ONE (08:06)
[2022-06-12] MEDS ORDERED: DECADRON ONE (08:06)
[2022-06-12] MEDS ORDERED: ZOFRAN ONE (08:06)
[2022-06-12] MEDS ORDERED: DURAMORPH ONE (08:06)
[2022-06-12] MEDS ORDERED: DIPRIVAN 100 ML IV ONE (08:06)
[2022-06-12] MEDS ORDERED: VERSED ONE (08:07)
[2022-06-12] MEDS ORDERED: ULTRAM PO PRN (11:00)
[2022-06-12] MEDS ORDERED: CEPACOL SORE THROAT LOZENGE MM PRN (11:00)
--- NOTE | 2022-06-12 11:06 | HPH ---
ADMIT DATE: 06/12/2022 DICTATOR NAME: Baljit Camara MD CHIEF COMPLAINT: Painful left knee. HISTORY OF PRESENT ILLNESS: The patient is a 62-year-old male who has had pain about the left knee for the last 2 years, getting progressively worse. He takes Mobic for the pain and has had several cortisone injections with only temporary relief. He is no better with off the shelf bracing or home exercise program. He complains of pain with just household ambulation as well as night pain and giving way. PAST MEDICAL HISTORY: Positive for hypertension and osteoarthritis. PREVIOUS SURGICAL PROCEDURES: Include right total hip arthroplasty. FAMILY HISTORY: Negative. ALLERGIES: The patient has no known drug allergies. MEDICATIONS: Include lisinopril, meloxicam, montelukast. SOCIAL HISTORY: The patient does not smoke or drink and lives with his family at home. REVIEW OF SYSTEMS: Negative for chest pain, shortness of breath, nausea, vomiting, melena, hematochezia, dysuria, hematuria, fever, chills or weight loss. PHYSICAL EXAMINATION: GENERAL: Shows a 62-year-old male. He is 6 feet 1 inch, weighs 220 pounds. Healthy, no acute distress. HEENT: Within normal limits. CHEST: Clear to auscultation. HEART: Regular rate and rhythm. No murmur. ABDOMEN: Soft and nontender. EXTREMITIES: His left knee has a 2+ effusion. He has an obvious varus deformity. He has -10 degrees of full extension with 120 degrees of flexion. There is moderate crepitation with flexion and extension. His ligaments are all intact. NEUROLOGIC: He is awake and alert. He is oriented x 3. Cranial nerves 2-12 are grossly intact. He has 5/5 strength in all muscle groups of his upper and lower extremities. X-ray showed that he has [id number] medially as well as about the patellofemoral joint with obvious varus deformity. He has stage 4 OA radiographically. ASSESSMENT: Osteoarthritis, left knee. Other diagnosis include hypertension. PLAN: The patient is being admitted for left total knee arthroplasty. The risks and hazards of the procedure have been discussed with the patient. He understands the risk involved and wants to proceed as planned. Baljit Camara MD DR: HATTIE/STEF TID: [id number] RECEIPT: [id number]
--- NOTE | 2022-06-12 12:04 | OPH ---
DATE OF SURGERY: 06/12/2022 DICTATOR NAME: Baljit Camara MD PREOPERATIVE DIAGNOSIS: Osteoarthritis of the left knee. POSTOPERATIVE DIAGNOSIS: Osteoarthritis of the left knee. OPERATIVE PROCEDURE: Left knee total knee arthroplasty using Medacta Sphere knee, size 5 femur, size 6 tibia, a 14 mm insert. The patella was a large dome patella. All components were cemented. SURGEON: Baljit Camara MD. ANESTHESIA: Spinal. TOURNIQUET TIME: 78 minutes at 300 mmHg. DRAINS: None. BLOOD LOSS: 500 mL. DESCRIPTION OF INDICATIONS: The patient is a 62-year-old male who had end-stage OA about the left knee for the last 2 years. Pain got progressively worse. It limits his daily activities. He is no better with antiinflammatories, bracing, cortisone injections or home exercise program. X-ray showed that he is [id number] medially as well as by the patellofemoral joint. He was taken to the operating room for left total knee arthroplasty for pain relief. DESCRIPTION OF PROCEDURE: The patient was given a spinal anesthetic, then placed on the operating table in a supine position. A well-padded tourniquet was placed around the left thigh. The left lower extremity was sterilely prepped and draped. Left lower extremity was then exsanguinated with an Esmarch. The tourniquet was inflated to 300. The knee was flexed to 90 degrees. An anterior incision was made about the knee. Incision was taken through the skin and the subcutaneous tissues. Full-thickness flaps were developed medially and laterally. The patient had the medial parapatellar arthrotomy performed. The patella was deviated laterally. The patient had the capsule and the MCL released around the posteromedial aspect of the proximal tibia. Medial and lateral meniscectomies were performed and the anterior and posterior cruciate ligaments were released. The osteophytes about the distal femur and the patella were removed with a rongeur. The patient had the intramedullary drill hole made about the distal femur. Intramedullary ariel was placed down the femur and the cutting block was placed against the distal femur and pinned into position. The distal femoral cut was then made with a power saw. The patient then had the tibia subluxed anteriorly. Medial and lateral meniscectomies were completed. Intramedullary drill hole was made about the proximal tibia and the guide ariel was placed down the shaft of the tibia. The cutting block, which was attached to the intramedullary ariel, was then placed about the anteromedial portion of the tibia and adjusted for posterior slope, varus-valgus rotation and depth of cut. It was set at 2 mm below the medial surface, which was the most involved. The patient then had the cutting block pinned into position and a tibial cut was made. The patient had the #2 femoral jig placed against the distal femur and pinned into position. It measured a size 5 femoral component. The size 5 cutting block was placed about the distal femur and held into position with 2 screws and 2 pins. Anterior and posterior femoral cuts as well as the chamfer cuts were made. The patient then had the tibia subluxed anteriorly. The tibia trialled a size 6. The size 6 trial was pinned into position and then the central drill hole was made. The cruciate punch was used to stabilize the tibial component. We then did a trial reduction with a 6 tibia, 5 femur, initially a 10 working up to a size 14 insert. The size 14 insert allowed full extension with 120 degrees of flexion, excellent medial and lateral stability as well as anterior and posterior stability at 90 degrees. The patella was everted and was cut at 7 mm. There was still 16 mm of patella remaining. The drill holes were made and a large dome patella was selected and had excellent tracking. The final medial and lateral femoral drill holes were made. The patient had the femoral sulcus cut made. The patient then had the trial components all removed from the knee. The wounds were copiously irrigated and dried. The patient had the bony ends dried and a size 6 tibial component was cemented into position. The size 14 mm insert was impacted and secured with an anterior screw. The size 5 femoral component was cemented, as was the large dome patella. Excess cement was removed with curettes. The knee was held into full extension until the cement hardened and the knee was irrigated with Betadine-containing solution for 3 minutes. The Betadine was then irrigated from the knee. The tourniquet was released and bleeding was controlled with the cautery. The patient had the capsule closed with a #2 PDS in an interrupted [id number]-[id number] manner. The subcutaneous was closed with a barbed 2-0 Monocryl in a running manner and the skin was closed with sigrid. The patient had a suction Prevena-type dressing applied and the dressing was reinforced with 4 x 4s, cast padding and Johan wrap. The patient was then sent to recovery in a stable condition. Baljit Camara MD DR: HATTIE/FELICIA TID: [id number] RECEIPT: [id number]
[2022-06-12] MEDS: TYLENOL PO SCH ×3 (12:36→23:40)
[2022-06-12] MEDS: ANCEF 2 GM/D5W 50ML IV SCH ×2 (14:26→22:11)
--- NOTE | 2022-06-12 15:12 | NUR ---
DISCHARGE PLAN - F/U APPT DR YESSENIA MCKNIGHT - 06/29/22@10AM - [facility] - 06/16/22@8AM [email or web address] AND VISITED WITH PATIENT, SPOUSE, AND DAUGHTER ABOUT DISCHARGE PLANS AND NEEDS. PATIENT AND SPOUSE ONLY SPEAK [place], BUT REQUEST PATIENT'S DAUGHTER SHANTHI SAUER. PATIENT CURRENTLY LIVES HOME WITH SPOUSE IN [place]. PATIENT SEE'S DR YESSENIA MCKNIGHT FOR PCP. PATIENT HAS OWN WALKER AND DENIES NEED FOR ANY OTHER DME. PATIENT REQUEST TO DISCHARGE HOME WITH SPOUSE AND F/U OUTPATIENT @[facility]. CM INFORMED PATIENT AND SPOUSE THAT CM WOULD SET PATIENT UP WITH OUTPATIENT PHYSICAL THERAPY @[facility] AND DR YESSENIA MCKNIGHT FOR F/U APPT. PATIENT'S DAUGHTER SIGNS [facility] CHOICE LETTER WITH REQUEST FOR [facility] FOR CHART AND [facility] VENDOR OF CHOICE LETTER. CM CONTACTED DR YESSENIA MCKNIGHT'S OFFICE AND F/U APPT MADE FOR 06/29/22@10AM - 1ST AVAILABLE APPT. PATIENT OFFERED TO FAX CLINICALS. CM WILL FAX CLINICALS TO [phone] WHEN PATIENT DISCHARGED. CM, CONTACTED [facility] AND APPT MADE FOR PATIENT FOR 06/16/22@8AM. CM FAXED H&P, OP REPORT AND FACE SHEET TO [facility] @[phone]. FAX CONFIRMATION CONFIRMED COMPLETE. CM ENTERED PATIENT'S APPT TIMES IN PATIENT'S VISIT REPORT FOR [email or web address]. Addendum: 06/13/22 at 1327 by Hilda Hernandez RN,[facility] CM IN PATIENT'S ROOM AND INFORMED PATIENT OF APPT TIMES WITH [facility] AND DR YESSENIA MCKNIGHT IN [place]. CM WROTE PATIENT'S APPT TIME DOWN ON PATIENT'S MARKER BOARD FOR REMINDER. PATIENT DENIES ANY FURTHER NEEDS.
--- NOTE | 2022-06-12 16:03 | NUR ---
PT AMBULATED IN [place] WITH WALKER AND ASSIST X1. PT HAS A STEADY GAIT, TOLERATED WELL.
--- NOTE | 2022-06-12 16:45 | DIREP ---
PROCEDURE:XRAY KNEE 2 VWS-LT COMPARISON:None. INDICATIONS:POST OP FINDINGS: BONES:Total arthroplasty of the left knee. No visible fracture. No dislocation. JOINTS:Total arthroplasty components. Minimal gas in the joint. SOFT TISSUES:Anterior skin sigrid, soft tissue gas and edema. OTHER:No additional findings. CONCLUSION:Changes consistent with recent left knee arthroplasty. Dictated by: Elan Segundo M.D. on 06/12/2022 at 03:43 PM Read in [place]
--- NOTE | 2022-06-12 18:24 | PRM.PN ---
Subjective Subjective Date: Jun 12, 2022 Time: 18:24 Subjective Up in chair Pain ok NVM+ VSS Stable Patient History: No known health problems G8 MOTHER G8 FATHER G8 BROTHER G8 BROTHER G8 SISTER G8 SISTER 19 CHILD 19 CHILD 19 CHILD 19 CHILD VTE VTE Risk Total Score: 4 VTE Risk Score VTE Risk: Score 0-1 = Low Risk (Aggressive mobilization; early ambulation; no VTE prophylaxis required) Score 2: Moderate Risk (Intermittent/Pneumatic Compression Device OR Lovenox/Heparin/Coumadin) Score 3-4: High Risk (Intermittent/Pneumatic Compression Device AND Lovenox/Heparin/Coumadin) Score > or =5: Highest Risk (Intermittent/Pneumatic Compression Device AND Lovenox/Heparin/Coumadin) Review of Systems Musculoskeletal: other Allergies: Coded Allergies: No Known Allergies (Unverified , 11/10/20) Scheduled Lisinopril (Lisinopril), 1 TAB PO DAILY, (Reported) Meloxicam (Mobic), 1 TAB PO DAILY, (Reported) Montelukast Sodium (Montelukast Sodium), 1 TAB PO DAILY, (Reported) Objective Vitals and I/O Vital Sign - Last 24 Hours 06/12/22 06/12/22 06/12/22 06/12/22 06:05 06:05 10:44 10:50 Temp 97.3 99.0 Pulse 68 61 57 Resp 16 16 16 B/P (MAP) 142/91 (108) 131/80 (97) 126/79 (95) Pulse Ox 98 97 95 O2 Delivery Room Air Room Air Room Air Room Air 06/12/22 06/12/22 06/12/22 06/12/22 10:55 11:00 11:05 11:10 Pulse 63 57 60 59 Resp 16 16 16 16 B/P (MAP) 130/79 (96) 126/75 (92) 119/71 (87) 132/87 (102) Pulse Ox 97 95 92 96 O2 Delivery Room Air Room Air Room Air Room Air 06/12/22 06/12/22 06/12/22 06/12/22 11:15 11:20 11:25 11:30 Pulse 56 58 57 57 Resp 16 16 16 16 B/P (MAP) 137/67 (90) 132/82 (99) 140/77 (98) 131/70 (90) Pulse Ox 93 97 100 97 O2 Delivery Room Air Room Air Room Air Room Air 06/12/22 06/12/22 06/12/22 06/12/22 12:19 12:42 14:28 16:29 Temp 97.1 Pulse 55 62 Resp 16 18 B/P (MAP) 136/73 (94) 116/70 (85) Pulse Ox 97 98 O2 Delivery Room Air Room Air* Room Air* O2 Flow Rate 0 0 FiO2 21 21 General: Alert, Oriented X3, Cooperative, No acute distress HEENT: Atraumatic, PERRLA, EOMI, Mucous membr. moist/pink Lungs: Clear to auscultation, Normal air movement Heart: Regular rate Abdomen: Normal bowel sounds, Soft, No tenderness, No hepatospenomegaly Extremities: No clubbing, No cyanosis, No edema, Normal pulses, No tenderness/swelling Neuro: Normal gait, Normal speech Psych/Mental Status: Mental status NL, Mood NL All Results(Lab/Rad) Current Medications Medications (Trade) Dose Ordered Sig/Lopez Route PRN Reason Start Time Stop Time Status Last Admin Dose Admin Cefazolin Sodium 2 gm/Sodium Chloride 100 ml @ 100 mls/hr OT ONCE IV 06/12/22 05:30 06/12/22 12:13 DC 06/12/22 08:15 Mupirocin (Bactroban Ointment) 1 gm OT ONCE TP 06/12/22 05:30 06/12/22 12:13 DC 06/12/22 06:45 Cefazolin Sodium (Ancef) 2 gm STK-MED ONCE .ROUTE 06/12/22 05:35 06/12/22 05:35 DC Sodium Chloride 100 ml @ ud STK-MED ONCE IV 06/12/22 05:35 06/12/22 05:36 DC Gabapentin (Neurontin) 300 mg STK-MED ONCE .ROUTE 06/12/22 07:26 06/12/22 07:27 DC Celecoxib (Celebrex) 100 mg STK-MED ONCE .ROUTE 06/12/22 07:27 06/12/22 07:27 DC Acetaminophen (Tylenol) 500 mg STK-MED ONCE PO 06/12/22 07:28 06/12/22 07:29 DC Scopolamine (Transderm-Scop) 1 each STK-MED ONCE TD 06/12/22 07:28 06/12/22 07:29 DC Tramadol HCl (Ultram) 50 mg STK-MED ONCE .ROUTE 06/12/22 07:29 06/12/22 07:29 DC Bupivacaine HCl (Marcaine 0.5%) 1 ml STK-MED ONCE .ROUTE 06/12/22 07:32 06/12/22 07:32 DC Bupivacaine HCl (Sensorcaine-Mpf 0.25% Vial) 2.5 mg STK-MED ONCE .ROUTE 06/12/22 07:33 06/12/22 07:33 DC Clonidine HCl (Clonidine 1,000 Mcg/10 ml Vial) 1,000 mcg STK-MED ONCE EP 06/12/22 07:34 06/12/22 07:34 DC Sodium Chloride (Sodium Chloride Irr Bottle) 1,000 ml STK-MED ONCE IR 06/12/22 07:36 06/12/22 07:36 DC Sterile Water (Water) 1,000 ml STK-MED ONCE .ROUTE 06/12/22 07:36 06/12/22 07:36 DC Sodium Chloride 250 ml @ ud STK-MED ONCE .ROUTE 06/12/22 07:36 06/12/22 07:36 DC Sodium Chloride (NS 3000ml Irr) 3,000 ml STK-MED ONCE IR 06/12/22 07:36 06/12/22 07:36 DC Celecoxib (Celebrex) 400 mg OT ONCE PO 06/12/22 07:30 06/12/22 12:13 DC 06/12/22 08:02 Gabapentin (Neurontin) 600 mg OT ONCE PO 06/12/22 07:30 06/12/22 12:15 DC 06/12/22 08:06 Tramadol HCl (Ultram) 100 mg OT ONCE PO 06/12/22 07:30 06/12/22 12:14 DC 06/12/22 08:04 Scopolamine (Transderm-Scop) 1 each OT ONCE TD 06/12/22 08:00 06/12/22 12:14 DC 06/12/22 08:04 Acetaminophen (Tylenol) 1,000 mg OT ONCE PO 06/12/22 07:30 06/12/22 12:14 DC 06/12/22 08:02 Ondansetron HCl (Zofran) 4 mg STK-MED ONCE .ROUTE 06/12/22 08:06 06/12/22 08:06 DC Tranexamic Acid (Tranexamic Acid) 1,000 mg STK-MED ONCE .ROUTE 06/12/22 08:06 06/12/22 08:06 DC Propofol 100 ml @ ud STK-MED ONCE IV 06/12/22 08:06 06/12/22 08:06 DC Morphine Sulfate (Duramorph) 10 mg STK-MED ONCE .ROUTE 06/12/22 08:06 06/12/22 08:07 DC Tramadol HCl (Ultram) 50 mg Q6H PRN PO PAIN 1 - 3 06/12/22 11:00 07/12/22 10:59 Tramadol HCl (Ultram) 100 mg Q6H PRN PO PAIN 4 - 6 06/12/22 11:00 07/12/22 10:59 Rivaroxaban (Xarelto) 10 mg DAILY PO 06/13/22 09:00 07/13/22 08:59 Docusate Sodium (Colace) 100 mg DAILY PO 06/13/22 09:00 07/13/22 08:59 Throat Lozenges (Cepacol Sore Throat Lozenge) 1 each PRN PRN MM SORE THROAT 06/12/22 11:00 07/12/22 10:59 Celecoxib (Celebrex) 200 mg BID PO 06/12/22 21:00 07/12/22 20:59 Cefazolin Sodium/ Dextrose (Ancef 2 Gm/D5W 50ml) 2 gm Q8 IV 06/12/22 14:00 06/13/22 06:01 06/12/22 14:26 Lisinopril (Zestril) 20 mg DAILY PO 06/13/22 09:00 07/13/22 08:59 Montelukast Sodium (Singulair) 10 mg DAILY PO 06/13/22 09:00 07/13/22 08:59 Acetaminophen (Tylenol) 1,000 mg Q6HR PO 06/12/22 12:00 07/12/22 11:59 06/12/22 17:34 Course Sepsis Screening Results: Posi: NEGATIVE Sepsis Qualifier/Stage: NO DEFINITE RISK Vitals & review Data Vital Sign - Last 24 Hours 06/12/22 06/12/22 06/12/22 06/12/22 06:05 06:05 10:44 10:50 Temp 97.3 99.0 Pulse 68 61 57 Resp 16 16 16 B/P (MAP) 142/91 (108) 131/80 (97) 126/79 (95) Pulse Ox 98 97 95 O2 Delivery Room Air Room Air Room Air Room Air 06/12/22 06/12/22 06/12/22 06/12/22 10:55 11:00 11:05 11:10 Pulse 63 57 60 59 Resp 16 16 16 16 B/P (MAP) 130/79 (96) 126/75 (92) 119/71 (87) 132/87 (102) Pulse Ox 97 95 92 96 O2 Delivery Room Air Room Air Room Air Room Air 06/12/22 06/12/22 06/12/22 06/12/22 11:15 11:20 11:25 11:30 Pulse 56 58 57 57 Resp 16 16 16 16 B/P (MAP) 137/67 (90) 132/82 (99) 140/77 (98) 131/70 (90) Pulse Ox 93 97 100 97 O2 Delivery Room Air Room Air Room Air Room Air 06/12/22 06/12/22 06/12/22 06/12/22 12:19 12:42 14:28 16:29 Temp 97.1 Pulse 55 62 Resp 16 18 B/P (MAP) 136/73 (94) 116/70 (85) Pulse Ox 97 98 O2 Delivery Room Air Room Air* Room Air* O2 Flow Rate 0 0 FiO2 21 21 Current Medications Medications (Trade) Dose Ordered Sig/Lopez PRN Reason Start Time Stop Time Status Last Admin Acetaminophen (Tylenol) 1,000 mg Q6HR 06/12/22 12:00 07/12/22 11:59 06/12/22 17:34 Cefazolin Sodium/ Dextrose (Ancef 2 Gm/D5W 50ml) 2 gm Q8 06/12/22 14:00 06/13/22 06:01 06/12/22 14:26 Celecoxib (Celebrex) 200 mg BID 06/12/22 21:00 07/12/22 20:59 Docusate Sodium (Colace) 100 mg DAILY 06/13/22 09:00 07/13/22 08:59 Lisinopril (Zestril) 20 mg DAILY 06/13/22 09:00 07/13/22 08:59 Montelukast Sodium (Singulair) 10 mg DAILY 06/13/22 09:00 07/13/22 08:59 Rivaroxaban (Xarelto) 10 mg DAILY 06/13/22 09:00 07/13/22 08:59 Throat Lozenges (Cepacol Sore Throat Lozenge) 1 each PRN PRN SORE THROAT 06/12/22 11:00 07/12/22 10:59 Tramadol HCl (Ultram) 50 mg Q6H PRN PAIN 1 - 3 06/12/22 11:00 07/12/22 10:59 Tramadol HCl (Ultram) 100 mg Q6H PRN PAIN 4 - 6 06/12/22 11:00 07/12/22 10:59 LEVEL 1 SEPSIS INFECTION CRITE: ABX Therapy, Recent Invasive Procedure LEVEL 2-SIRS (LIST ALL THAT AP: None/Not assessed Cardiovascular Evidence: Not Assessed or None Hematologic Evidence: None/Not assessed Hepatic Evidence: None/Not assessed Metabolic Evidence: None/Not assessed Neurological Evidence: None/Not assessed Respiratory Evidence: None/Not assessed Renal Evidence: None/Not assessed O2 Sat by Pulse Oximetry: 98 KAYLENE NEAL MD Jun 12, 2022 18:24
[2022-06-12] MEDS: CELEBREX PO SCH (20:16)
[2022-06-12 21:43] LABS: MEAN CORP HGB 30.3 pg (26-34); RED CELL DISTRIBUTION WIDTH 12.3 % (11.5-14.5)
[2022-06-13 00:56] VITALS: BP 121/68
[2022-06-13] MEDS: LACTATED RINGERS 1,000 ML IV SCH ×3 (01:53→20:52)
[2022-06-13 04:47] VITALS: BP 120/73
[2022-06-13 05:00] LABS: MEAN CORP HGB 30.1 pg (26-34); RED CELL DISTRIBUTION WIDTH 12.5 % (11.5-14.5)
[2022-06-13] MEDS: ANCEF 2 GM/D5W 50ML IV SCH (05:07)
[2022-06-13] MEDS: TYLENOL PO SCH ×3 (05:07→18:09)
[2022-06-13 07:09] VITALS: BP 124/66
--- NOTE | 2022-06-13 08:42 | PRM.PN ---
Subjective Subjective Date: Jun 13, 2022 Time: 08:41 Subjective Pain ok Up with PT and has no complaints VSS HGB 13.5 DC newby Cont with PT Patient History: No known health problems G8 MOTHER G8 FATHER G8 BROTHER G8 BROTHER G8 SISTER G8 SISTER 19 CHILD 19 CHILD 19 CHILD 19 CHILD VTE VTE Risk Total Score: 4 VTE Risk Score VTE Risk: Score 0-1 = Low Risk (Aggressive mobilization; early ambulation; no VTE prophylaxis required) Score 2: Moderate Risk (Intermittent/Pneumatic Compression Device OR Lovenox/Heparin/Coumadin) Score 3-4: High Risk (Intermittent/Pneumatic Compression Device AND Lovenox/Heparin/Coumadin) Score > or =5: Highest Risk (Intermittent/Pneumatic Compression Device AND Lovenox/Heparin/Coumadin) Review of Systems Musculoskeletal: other Allergies: Coded Allergies: No Known Allergies (Unverified , 11/10/20) Scheduled Lisinopril (Lisinopril), 1 TAB PO DAILY, (Reported) Meloxicam (Mobic), 1 TAB PO DAILY, (Reported) Montelukast Sodium (Montelukast Sodium), 1 TAB PO DAILY, (Reported) Objective Vitals and I/O Vital Sign - Last 24 Hours 06/12/22 06/12/22 06/12/22 06/12/22 10:44 10:50 10:55 11:00 Temp 99.0 Pulse 61 57 63 57 Resp 16 16 16 16 B/P (MAP) 131/80 (97) 126/79 (95) 130/79 (96) 126/75 (92) Pulse Ox 97 95 97 95 O2 Delivery Room Air Room Air Room Air Room Air 06/12/22 06/12/22 06/12/22 06/12/22 11:05 11:10 11:15 11:20 Pulse 60 59 56 58 Resp 16 16 16 16 B/P (MAP) 119/71 (87) 132/87 (102) 137/67 (90) 132/82 (99) Pulse Ox 92 96 93 97 O2 Delivery Room Air Room Air Room Air Room Air 06/12/22 06/12/22 06/12/22 06/12/22 11:25 11:30 12:19 12:42 Temp 97.1 Pulse 57 57 55 Resp 16 16 16 B/P (MAP) 140/77 (98) 131/70 (90) 136/73 (94) Pulse Ox 100 97 O2 Delivery Room Air Room Air Room Air Room Air* O2 Flow Rate 0 FiO2 21 06/12/22 06/12/22 06/12/22 06/12/22 14:28 16:29 20:13 23:47 Temp 97.7 Pulse 62 56 Resp 18 15 B/P (MAP) 116/70 (85) 122/57 (78) Pulse Ox 97 98 98 O2 Delivery Room Air* Room Air* Room Air O2 Flow Rate 0 0 0.00 FiO2 21 06/13/22 06/13/22 06/13/22 06/13/22 00:56 04:47 07:09 08:15 Temp 97.4 97.6 97.9 Pulse 47 46 46 Resp 15 17 18 B/P (MAP) 121/68 (85) 120/73 (89) 124/66 (85) Pulse Ox 99 100 100 O2 Delivery Room Air* Room Air* Room Air* Room Air O2 Flow Rate 0 0 0 0.00 FiO2 Intake and Output 06/13/22 07:00 Intake Total 6000 ml Output Total 1850 ml Balance 4150 ml General: Alert, Oriented X3, Cooperative, No acute distress HEENT: Atraumatic, PERRLA, EOMI, Mucous membr. moist/pink Lungs: Clear to auscultation, Normal air movement Heart: Regular rate Abdomen: Normal bowel sounds, Soft, No tenderness, No hepatospenomegaly Extremities: No clubbing, No cyanosis, No edema, Normal pulses, No tenderness/swelling Neuro: Normal gait, Normal speech Psych/Mental Status: Mental status NL, Mood NL All Results(Lab/Rad) Current Medications Medications (Trade) Dose Ordered Sig/Lopez Route PRN Reason Start Time Stop Time Status Last Admin Dose Admin Cefazolin Sodium 2 gm/Sodium Chloride 100 ml @ 100 mls/hr OT ONCE IV 06/12/22 05:30 06/12/22 12:13 DC 06/12/22 08:15 Mupirocin (Bactroban Ointment) 1 gm OT ONCE TP 06/12/22 05:30 06/12/22 12:13 DC 06/12/22 06:45 Cefazolin Sodium (Ancef) 2 gm STK-MED ONCE .ROUTE 06/12/22 05:35 06/12/22 05:35 DC Sodium Chloride 100 ml @ ud STK-MED ONCE IV 06/12/22 05:35 06/12/22 05:36 DC Gabapentin (Neurontin) 300 mg STK-MED ONCE .ROUTE 06/12/22 07:26 06/12/22 07:27 DC Celecoxib (Celebrex) 100 mg STK-MED ONCE .ROUTE 06/12/22 07:27 06/12/22 07:27 DC Acetaminophen (Tylenol) 500 mg STK-MED ONCE PO 06/12/22 07:28 06/12/22 07:29 DC Scopolamine (Transderm-Scop) 1 each STK-MED ONCE TD 06/12/22 07:28 06/12/22 07:29 DC Tramadol HCl (Ultram) 50 mg STK-MED ONCE .ROUTE 06/12/22 07:29 06/12/22 07:29 DC Bupivacaine HCl (Marcaine 0.5%) 1 ml STK-MED ONCE .ROUTE 06/12/22 07:32 06/12/22 07:32 DC Bupivacaine HCl (Sensorcaine-Mpf 0.25% Vial) 2.5 mg STK-MED ONCE .ROUTE 06/12/22 07:33 06/12/22 07:33 DC Clonidine HCl (Clonidine 1,000 Mcg/10 ml Vial) 1,000 mcg STK-MED ONCE EP 06/12/22 07:34 06/12/22 07:34 DC Sodium Chloride (Sodium Chloride Irr Bottle) 1,000 ml STK-MED ONCE IR 06/12/22 07:36 06/12/22 07:36 DC Sterile Water (Water) 1,000 ml STK-MED ONCE .ROUTE 06/12/22 07:36 06/12/22 07:36 DC Sodium Chloride 250 ml @ ud STK-MED ONCE .ROUTE 06/12/22 07:36 06/12/22 07:36 DC Sodium Chloride (NS 3000ml Irr) 3,000 ml STK-MED ONCE IR 06/12/22 07:36 06/12/22 07:36 DC Celecoxib (Celebrex) 400 mg OT ONCE PO 06/12/22 07:30 06/12/22 12:13 DC 06/12/22 08:02 Gabapentin (Neurontin) 600 mg OT ONCE PO 06/12/22 07:30 06/12/22 12:15 DC 06/12/22 08:06 Tramadol HCl (Ultram) 100 mg OT ONCE PO 06/12/22 07:30 06/12/22 12:14 DC 06/12/22 08:04 Scopolamine (Transderm-Scop) 1 each OT ONCE TD 06/12/22 08:00 06/12/22 12:14 DC 06/12/22 08:04 Acetaminophen (Tylenol) 1,000 mg OT ONCE PO 06/12/22 07:30 06/12/22 12:14 DC 06/12/22 08:02 Ondansetron HCl (Zofran) 4 mg STK-MED ONCE .ROUTE 06/12/22 08:06 06/12/22 08:06 DC Tranexamic Acid (Tranexamic Acid) 1,000 mg STK-MED ONCE .ROUTE 06/12/22 08:06 06/12/22 08:06 DC Propofol 100 ml @ ud STK-MED ONCE IV 06/12/22 08:06 06/12/22 08:06 DC Morphine Sulfate (Duramorph) 10 mg STK-MED ONCE .ROUTE 06/12/22 08:06 06/12/22 08:07 DC Tramadol HCl (Ultram) 50 mg Q6H PRN PO PAIN 1 - 3 06/12/22 11:00 07/12/22 10:59 Tramadol HCl (Ultram) 100 mg Q6H PRN PO PAIN 4 - 6 06/12/22 11:00 07/12/22 10:59 Rivaroxaban (Xarelto) 10 mg DAILY PO 06/13/22 09:00 07/13/22 08:59 Docusate Sodium (Colace) 100 mg DAILY PO 06/13/22 09:00 07/13/22 08:59 Throat Lozenges (Cepacol Sore Throat Lozenge) 1 each PRN PRN MM SORE THROAT 06/12/22 11:00 07/12/22 10:59 Celecoxib (Celebrex) 200 mg BID PO 06/12/22 21:00 07/12/22 20:59 Cefazolin Sodium/ Dextrose (Ancef 2 Gm/D5W 50ml) 2 gm Q8 IV 06/12/22 14:00 06/13/22 06:01 06/12/22 14:26 Lisinopril (Zestril) 20 mg DAILY PO 06/13/22 09:00 07/13/22 08:59 Montelukast Sodium (Singulair) 10 mg DAILY PO 06/13/22 09:00 07/13/22 08:59 Acetaminophen (Tylenol) 1,000 mg Q6HR PO 06/12/22 12:00 07/12/22 11:59 06/12/22 17:34 Course Sepsis Screening Results: Posi: NEGATIVE Sepsis Qualifier/Stage: NO DEFINITE RISK Vitals & review Data Vital Sign - Last 24 Hours 06/12/22 06/12/22 06/12/22 06/12/22 06:05 06:05 10:44 10:50 Temp 97.3 99.0 Pulse 68 61 57 Resp 16 16 16 B/P (MAP) 142/91 (108) 131/80 (97) 126/79 (95) Pulse Ox 98 97 95 O2 Delivery Room Air Room Air Room Air Room Air 06/12/22 06/12/22 06/12/22 06/12/22 10:55 11:00 11:05 11:10 Pulse 63 57 60 59 Resp 16 16 16 16 B/P (MAP) 130/79 (96) 126/75 (92) 119/71 (87) 132/87 (102) Pulse Ox 97 95 92 96 O2 Delivery Room Air Room Air Room Air Room Air 06/12/22 06/12/22 06/12/22 06/12/22 11:15 11:20 11:25 11:30 Pulse 56 58 57 57 Resp 16 16 16 16 B/P (MAP) 137/67 (90) 132/82 (99) 140/77 (98) 131/70 (90) Pulse Ox 93 97 100 97 O2 Delivery Room Air Room Air Room Air Room Air 06/12/22 06/12/22 06/12/22 06/12/22 12:19 12:42 14:28 16:29 Temp 97.1 Pulse 55 62 Resp 16 18 B/P (MAP) 136/73 (94) 116/70 (85) Pulse Ox 97 98 O2 Delivery Room Air Room Air* Room Air* O2 Flow Rate 0 0 FiO2 21 21 Current Medications Medications (Trade) Dose Ordered Sig/Lopez PRN Reason Start Time Stop Time Status Last Admin Acetaminophen (Tylenol) 1,000 mg Q6HR 06/12/22 12:00 07/12/22 11:59 06/12/22 17:34 Cefazolin Sodium/ Dextrose (Ancef 2 Gm/D5W 50ml) 2 gm Q8 06/12/22 14:00 06/13/22 06:01 06/12/22 14:26 Celecoxib (Celebrex) 200 mg BID 06/12/22 21:00 07/12/22 20:59 Docusate Sodium (Colace) 100 mg DAILY 06/13/22 09:00 07/13/22 08:59 Lisinopril (Zestril) 20 mg DAILY 06/13/22 09:00 07/13/22 08:59 Montelukast Sodium (Singulair) 10 mg DAILY 06/13/22 09:00 07/13/22 08:59 Rivaroxaban (Xarelto) 10 mg DAILY 06/13/22 09:00 07/13/22 08:59 Throat Lozenges (Cepacol Sore Throat Lozenge) 1 each PRN PRN SORE THROAT 06/12/22 11:00 07/12/22 10:59 Tramadol HCl (Ultram) 50 mg Q6H PRN PAIN 1 - 3 06/12/22 11:00 07/12/22 10:59 Tramadol HCl (Ultram) 100 mg Q6H PRN PAIN 4 - 6 06/12/22 11:00 07/12/22 10:59 LEVEL 1 SEPSIS INFECTION CRITE: ABX Therapy, Recent Invasive Procedure LEVEL 2-SIRS (LIST ALL THAT AP: None/Not assessed Cardiovascular Evidence: Not Assessed or None Hematologic Evidence: None/Not assessed Hepatic Evidence: None/Not assessed Metabolic Evidence: None/Not assessed Neurological Evidence: None/Not assessed Respiratory Evidence: None/Not assessed Renal Evidence: None/Not assessed O2 Sat by Pulse Oximetry: 100 Oxygen Flow Rate: 0.00 KAYLENE NEAL MD Jun 13, 2022 08:42
[2022-06-13] MEDS: ZESTRIL PO SCH (09:06)
[2022-06-13] MEDS: SINGULAIR PO SCH (09:07)
[2022-06-13] MEDS: CELEBREX PO SCH ×2 (09:07→20:52)
[2022-06-13] MEDS: COLACE PO SCH (09:08)
[2022-06-13] MEDS: XARELTO PO SCH (09:08)
--- NOTE | 2022-06-13 10:57 | NUR ---
DC ARIZMENDI CATHETER, REMOVED 9CC OF WATER FROM BULB, AND REMOVED WITHOUT DIFFICULTY PT TOLERATED WELL, PT DUE TO VOID BY 1899
[2022-06-13 11:24] VITALS: BP 148/127
[2022-06-13 16:39] VITALS: BP 129/73
[2022-06-13 19:33] VITALS: BP 118/66
[2022-06-14 00:11] VITALS: BP 132/75
[2022-06-14] MEDS: TYLENOL PO SCH ×2 (00:30→05:47)
[2022-06-14] MEDS: ULTRAM PO PRN ×2 (00:35→08:53)
[2022-06-14 04:56] VITALS: BP 128/78
[2022-06-14] MEDS: LACTATED RINGERS 1,000 ML IV SCH (06:47)
[2022-06-14 07:39] VITALS: BP 119/75
--- NOTE | 2022-06-14 08:37 | PRM.PN ---
Subjective Subjective Date: Jun 14, 2022 Time: 08:37 Subjective Independent wit PT and OT VSS NVM+ Will dc Patient History: No known health problems G8 MOTHER G8 FATHER G8 BROTHER G8 BROTHER G8 SISTER G8 SISTER 19 CHILD 19 CHILD 19 CHILD 19 CHILD VTE VTE Risk Total Score: 4 VTE Risk Score VTE Risk: Score 0-1 = Low Risk (Aggressive mobilization; early ambulation; no VTE prophylaxis required) Score 2: Moderate Risk (Intermittent/Pneumatic Compression Device OR Lovenox/Heparin/Coumadin) Score 3-4: High Risk (Intermittent/Pneumatic Compression Device AND Lovenox/Heparin/Coumadin) Score > or =5: Highest Risk (Intermittent/Pneumatic Compression Device AND Lovenox/Heparin/Coumadin) Review of Systems Musculoskeletal: other Allergies: Coded Allergies: No Known Allergies (Unverified , 11/10/20) Scheduled Lisinopril (Lisinopril), 1 TAB PO DAILY, (Reported) Meloxicam (Mobic), 1 TAB PO DAILY, (Reported) Montelukast Sodium (Montelukast Sodium), 1 TAB PO DAILY, (Reported) Objective Vitals and I/O Vital Sign - Last 24 Hours 06/13/22 06/13/22 06/13/22 06/13/22 09:06 11:24 16:39 19:33 Temp 98.4 98.1 99.1 Pulse 56 56 55 Resp 16 16 16 B/P (MAP) 124/66 148/127 (134) 129/73 (91) 118/66 (83) Pulse Ox 98 96 O2 Delivery Room Air* Room Air* Room Air* O2 Flow Rate 0 0 0 FiO2 06/13/22 06/14/22 06/14/22 06/14/22 19:50 00:11 04:56 07:39 Temp 97.9 98.5 98.2 Pulse 67 61 58 Resp 17 18 16 B/P (MAP) 132/75 (94) 128/78 (95) 119/75 (90) Pulse Ox 98 99 97 O2 Delivery Room Air Room Air* Room Air* Room Air* O2 Flow Rate 0.00 0 0 0 FiO2 Intake and Output 06/14/22 07:00 Intake Total 300 ml Balance 300 ml General: Alert, Oriented X3, Cooperative, No acute distress HEENT: Atraumatic, PERRLA, EOMI, Mucous membr. moist/pink Lungs: Clear to auscultation, Normal air movement Heart: Regular rate Abdomen: Normal bowel sounds, Soft, No tenderness, No hepatospenomegaly Extremities: No clubbing, No cyanosis, No edema, Normal pulses, No tenderness/swelling Neuro: Normal gait, Normal speech Psych/Mental Status: Mental status NL, Mood NL All Results(Lab/Rad) Current Medications Medications (Trade) Dose Ordered Sig/Lopez Route PRN Reason Start Time Stop Time Status Last Admin Dose Admin Cefazolin Sodium 2 gm/Sodium Chloride 100 ml @ 100 mls/hr OT ONCE IV 06/12/22 05:30 06/12/22 12:13 DC 06/12/22 08:15 Mupirocin (Bactroban Ointment) 1 gm OT ONCE TP 06/12/22 05:30 06/12/22 12:13 DC 06/12/22 06:45 Cefazolin Sodium (Ancef) 2 gm STK-MED ONCE .ROUTE 06/12/22 05:35 06/12/22 05:35 DC Sodium Chloride 100 ml @ ud STK-MED ONCE IV 06/12/22 05:35 06/12/22 05:36 DC Gabapentin (Neurontin) 300 mg STK-MED ONCE .ROUTE 06/12/22 07:26 06/12/22 07:27 DC Celecoxib (Celebrex) 100 mg STK-MED ONCE .ROUTE 06/12/22 07:27 06/12/22 07:27 DC Acetaminophen (Tylenol) 500 mg STK-MED ONCE PO 06/12/22 07:28 06/12/22 07:29 DC Scopolamine (Transderm-Scop) 1 each STK-MED ONCE TD 06/12/22 07:28 06/12/22 07:29 DC Tramadol HCl (Ultram) 50 mg STK-MED ONCE .ROUTE 06/12/22 07:29 06/12/22 07:29 DC Bupivacaine HCl (Marcaine 0.5%) 1 ml STK-MED ONCE .ROUTE 06/12/22 07:32 06/12/22 07:32 DC Bupivacaine HCl (Sensorcaine-Mpf 0.25% Vial) 2.5 mg STK-MED ONCE .ROUTE 06/12/22 07:33 06/12/22 07:33 DC Clonidine HCl (Clonidine 1,000 Mcg/10 ml Vial) 1,000 mcg STK-MED ONCE EP 06/12/22 07:34 06/12/22 07:34 DC Sodium Chloride (Sodium Chloride Irr Bottle) 1,000 ml STK-MED ONCE IR 06/12/22 07:36 06/12/22 07:36 DC Sterile Water (Water) 1,000 ml STK-MED ONCE .ROUTE 06/12/22 07:36 06/12/22 07:36 DC Sodium Chloride 250 ml @ ud STK-MED ONCE .ROUTE 06/12/22 07:36 06/12/22 07:36 DC Sodium Chloride (NS 3000ml Irr) 3,000 ml STK-MED ONCE IR 06/12/22 07:36 06/12/22 07:36 DC Celecoxib (Celebrex) 400 mg OT ONCE PO 06/12/22 07:30 06/12/22 12:13 DC 06/12/22 08:02 Gabapentin (Neurontin) 600 mg OT ONCE PO 06/12/22 07:30 06/12/22 12:15 DC 06/12/22 08:06 Tramadol HCl (Ultram) 100 mg OT ONCE PO 06/12/22 07:30 06/12/22 12:14 DC 06/12/22 08:04 Scopolamine (Transderm-Scop) 1 each OT ONCE TD 06/12/22 08:00 06/12/22 12:14 DC 06/12/22 08:04 Acetaminophen (Tylenol) 1,000 mg OT ONCE PO 06/12/22 07:30 06/12/22 12:14 DC 06/12/22 08:02 Ondansetron HCl (Zofran) 4 mg STK-MED ONCE .ROUTE 06/12/22 08:06 06/12/22 08:06 DC Tranexamic Acid (Tranexamic Acid) 1,000 mg STK-MED ONCE .ROUTE 06/12/22 08:06 06/12/22 08:06 DC Propofol 100 ml @ ud STK-MED ONCE IV 06/12/22 08:06 06/12/22 08:06 DC Morphine Sulfate (Duramorph) 10 mg STK-MED ONCE .ROUTE 06/12/22 08:06 06/12/22 08:07 DC Tramadol HCl (Ultram) 50 mg Q6H PRN PO PAIN 1 - 3 06/12/22 11:00 07/12/22 10:59 Tramadol HCl (Ultram) 100 mg Q6H PRN PO PAIN 4 - 6 06/12/22 11:00 07/12/22 10:59 Rivaroxaban (Xarelto) 10 mg DAILY PO 06/13/22 09:00 07/13/22 08:59 Docusate Sodium (Colace) 100 mg DAILY PO 06/13/22 09:00 07/13/22 08:59 Throat Lozenges (Cepacol Sore Throat Lozenge) 1 each PRN PRN MM SORE THROAT 06/12/22 11:00 07/12/22 10:59 Celecoxib (Celebrex) 200 mg BID PO 06/12/22 21:00 07/12/22 20:59 Cefazolin Sodium/ Dextrose (Ancef 2 Gm/D5W 50ml) 2 gm Q8 IV 06/12/22 14:00 06/13/22 06:01 06/12/22 14:26 Lisinopril (Zestril) 20 mg DAILY PO 06/13/22 09:00 07/13/22 08:59 Montelukast Sodium (Singulair) 10 mg DAILY PO 06/13/22 09:00 07/13/22 08:59 Acetaminophen (Tylenol) 1,000 mg Q6HR PO 06/12/22 12:00 07/12/22 11:59 06/12/22 17:34 Course Sepsis Screening Results: Posi: NEGATIVE Sepsis Qualifier/Stage: NO DEFINITE RISK Vitals & review Data Vital Sign - Last 24 Hours 06/12/22 06/12/22 06/12/22 06/12/22 06:05 06:05 10:44 10:50 Temp 97.3 99.0 Pulse 68 61 57 Resp 16 16 16 B/P (MAP) 142/91 (108) 131/80 (97) 126/79 (95) Pulse Ox 98 97 95 O2 Delivery Room Air Room Air Room Air Room Air 06/12/22 06/12/22 06/12/22 06/12/22 10:55 11:00 11:05 11:10 Pulse 63 57 60 59 Resp 16 16 16 16 B/P (MAP) 130/79 (96) 126/75 (92) 119/71 (87) 132/87 (102) Pulse Ox 97 95 92 96 O2 Delivery Room Air Room Air Room Air Room Air 06/12/22 06/12/22 06/12/22 06/12/22 11:15 11:20 11:25 11:30 Pulse 56 58 57 57 Resp 16 16 16 16 B/P (MAP) 137/67 (90) 132/82 (99) 140/77 (98) 131/70 (90) Pulse Ox 93 97 100 97 O2 Delivery Room Air Room Air Room Air Room Air 06/12/22 06/12/22 06/12/22 06/12/22 12:19 12:42 14:28 16:29 Temp 97.1 Pulse 55 62 Resp 16 18 B/P (MAP) 136/73 (94) 116/70 (85) Pulse Ox 97 98 O2 Delivery Room Air Room Air* Room Air* O2 Flow Rate 0 0 FiO2 21 21 Current Medications Medications (Trade) Dose Ordered Sig/Lopez PRN Reason Start Time Stop Time Status Last Admin Acetaminophen (Tylenol) 1,000 mg Q6HR 06/12/22 12:00 07/12/22 11:59 06/12/22 17:34 Cefazolin Sodium/ Dextrose (Ancef 2 Gm/D5W 50ml) 2 gm Q8 06/12/22 14:00 06/13/22 06:01 06/12/22 14:26 Celecoxib (Celebrex) 200 mg BID 06/12/22 21:00 07/12/22 20:59 Docusate Sodium (Colace) 100 mg DAILY 06/13/22 09:00 07/13/22 08:59 Lisinopril (Zestril) 20 mg DAILY 06/13/22 09:00 07/13/22 08:59 Montelukast Sodium (Singulair) 10 mg DAILY 06/13/22 09:00 07/13/22 08:59 Rivaroxaban (Xarelto) 10 mg DAILY 06/13/22 09:00 07/13/22 08:59 Throat Lozenges (Cepacol Sore Throat Lozenge) 1 each PRN PRN SORE THROAT 06/12/22 11:00 07/12/22 10:59 Tramadol HCl (Ultram) 50 mg Q6H PRN PAIN 1 - 3 06/12/22 11:00 07/12/22 10:59 Tramadol HCl (Ultram) 100 mg Q6H PRN PAIN 4 - 6 06/12/22 11:00 07/12/22 10:59 LEVEL 1 SEPSIS INFECTION CRITE: Recent Invasive Procedure LEVEL 2-SIRS (LIST ALL THAT AP: [id number] Cardiovascular Evidence: Not Assessed or None Hematologic Evidence: None/Not assessed Hepatic Evidence: None/Not assessed Metabolic Evidence: None/Not assessed Neurological Evidence: None/Not assessed Respiratory Evidence: None/Not assessed Renal Evidence: None/Not assessed O2 Sat by Pulse Oximetry: 97 Oxygen Flow Rate: 0.00 KAYLENE NEAL MD Jun 14, 2022 08:37
[2022-06-14] MEDS: XARELTO PO SCH (08:46)
[2022-06-14] MEDS: SINGULAIR PO SCH (08:46)
[2022-06-14] MEDS: CELEBREX PO SCH (08:46)
[2022-06-14] MEDS: ZESTRIL PO SCH (08:46)
[2022-06-14] MEDS: COLACE PO SCH (08:47)
[2022-06-14 11:20] VITALS: BP 116/65
--- NOTE | 2022-06-14 11:40 | NUR ---
PT DISCHARGED VIA WC, ACCOMPANIED BY SPOUSE AND NURSING STAFF X1, TO PRIVATE AUTO
[2022-06-14 11:56] VITALS: BP 116/65
--- NOTE | 2022-06-14 12:51 | DSH ---
DATE OF DISCHARGE: 06/08/2022 DICTATOR NAME: Baljit Camara MD ADMITTING DIAGNOSES: 1. Osteoarthritis of the left knee. 2. Hypertension. DISCHARGE DIAGNOSES: 1. Osteoarthritis of the left knee. 2. Hypertension. OPERATIVE PROCEDURE DATE: 06/12/2022 PROCEDURE PERFORMED: Left total knee arthroplasty. CONSULTATIONS: None. COMPLICATIONS: None. SUMMARY OF ADMISSION: The patient is a 62-year-old male with end-stage OA about the left knee that was severely limiting his daily activities secondary to pain. He had failed conservative treatment. His x-ray showed stage IV tricompartmental IV OA about the left knee. He was taken to the operating room for left total knee arthroplasty on 06/12/2022. The patient tolerated his surgical procedure well. Postoperatively, he was awake and alert and had normal vital signs. His neurovascular exam has been normal throughout the postoperative course. He has been on foot pump, SCDs as well as early ambulation and Xarelto for DVT prophylaxis. The patient has tolerated a regular diet well. The hemoglobin dropped to a low of 13.5 postoperatively. Vital signs have remained stable. On discharge, the patient can transfer independently in and out of bed. Using is walker, he can walk at least 200 feet, weightbearing as tolerated. His neurovascular exam has been normal. The patient's pain has been well controlled with Tylenol and tramadol. The patient will be discharged on 06/14/2022. He will be instructed to take aspirin 81 mg twice a day for a month for DVT prophylaxis. He will do physical therapy in his home [facility] in [place], [place]. The patient will be instructed to use his walker and weightbear as tolerated. He will be instructed to leave his dressing intact until being seen in my office in 5 days. We will give him a prescription for tramadol for the pain. He will leave the dressing intact. Baljit Camara MD DR: HATTIE/JOSE TID: [id number] RECEIPT: [id number]
--- NOTE | 2022-06-14 14:04 | NUR ---
DISCHARGE CLINICAL CM FAXED CLINICAL TO DR YESSENIA MCKNIGHT @ [phone]. FAX CONFIRMED COMPLETE.
== END 2022-06-14 11:40 | disposition home or self-care (01) | DRG 470 ==
LOC: MS 11:45
PROVIDERS: ADMIT Orthopaedic Surgery; ATTEND Orthopaedic Surgery
PROC: 0SRD0J9 Replacement of Left Knee Joint with Synthetic Substitute, Cemented, Open Approach (ICD-10-PCS; principal; 2022-06-12 08:15)
DX: M17.12 Unilateral primary osteoarthritis, left knee (principal); R71.0 Precipitous drop in hematocrit; I10 Essential (primary) hypertension; Z96.641 Presence of right artificial hip joint; Z79.899 Other long term (current) drug therapy
CPT/HCPCS: 36415; 80053; 85025; 85027; 87070; 93005; 97162; 97166; A4217; C1713; C1776; G0378; J0690; J1100; J2250; J2405; J3490; J7050; J7120; 73560-LT; 97116-GP; 97535-GO; 97760-GP; C9290; J2274; J8499